=== PATIENT | female | born 1960 | race Caucasian/White ===

== ENCOUNTER 2017-05-18 03:31 | Emergency (ER) | payer BC ==
[~2017-05-18] VITALS: Ht 165.1 cm; Wt 70.6 kg
[~2017-05-18 03:31] MED LIST: ALBU1AER9 INH; BECL0.072 INH; CHOL1000 PO; CYCL10TA6 PO; EFFSR75 PO; FLNIN/ NAE; HYDR12.56 PO; HYDR2TAB48 PO; KLN1X PO; LEVO112T4 PO; PROM5SUP2 PR; PRT/40 PO; ROPI0.5T PO; SUCR1TAB PO; WLLSR150 PO
[2017-05-18 03:33] VITALS: TEMP 36.7; O2SAT 99; Ht 165.1 cm; Wt 70.6 kg
[2017-05-18] MEDS ORDERED: GI COCKTAIL PO STA (03:47)
[2017-05-18] MEDS ORDERED: LIDOCAINE HCL 2% VISC SOLN 20 ML UDC ONE (03:54)
[2017-05-18 03:58] LABS: BASO % 0.5 %; BASO ABS # 0.03 K/uL (0-0.2); COMPLETE YES; EOS % 2.7 %; HEMATOCRIT 39.3 % (37-47); IG% 0.2 %; LYMPH % 33.3 %; LYMPH ABS # 1.88 K/uL (1.2-3.4); MEAN CELL VOLUME 83.3 fL (80-100); MEAN CORPUSCULAR HEMOGLOBIN 27.3 pg (25-34); MEAN CORPUSCULAR HGB CONC 32.8 g/dl (32-36); MEAN PLATELET VOLUME 9.7 fL (7.4-10.4); MONO % 7.6 %; NEUT % 55.7 %; PLATELET COUNT 393 K/uL (130-400); RED BLOOD COUNT 4.72 M/uL (4.2-5.4); WHITE BLOOD COUNT 5.64 K/uL (4.8-10.8)
--- NOTE | 2017-05-18 04:07 | EMERGENCY ROOM VISIT NOTE ---
History First contact with patient: 03:37 Chief Complaint: CHEST PAIN Stated Complaint: HEARTBURN,FATIGUE,NAUSEA,METALLIC TASTE IN MOUTH Nursing Triage Summary: states she woke up with "indigestion" at 3 am, took her reflux medicine, thought she had better take an aspirin as well, so she did History of Present Illness The patient is a 56 year old female who presents to the Emergency Room for evaluation of chest pain. Notes several days of nausea, fatigue, shob with viral like symptoms. Awoke about an hour ago with burning substernal chest discomfort similar to her normal reflux but started noting metallic taste in mouth. No syncope, palpitations, vomiting, or other symptoms. No radiation of pain. Took OTC reflux meds and ASA withou relief thus came to ED for further evaluation and treatment. En route symptoms have resolved and she is feeling better. Nothing made worse, time made better. No previous cardiac history. Stress test 10 yrs ago negative per patient. Admits anxiety as well. Mother with history of CAD and stenting though at unknown age. Patient with history HTN. Denies smoking history. Denies DMII, DLP nor previous CAD history. No recent travel, trauma, steroid use, fam history of clotting issues. Review of Systems See HPI for pertinent positives & negatives. A total of 10 systems reviewed and were otherwise negative. Past Medical/Surgical History Medical Problems: (1) Anxiety (2) Asthma (3) Chronic kidney disease (4) Depression (5) GERD (gastroesophageal reflux disease) (6) Hiatal hernia (7) Hypertension (8) Hypothyroidism (9) Restless legs syndrome (RLS) (10) Sjoegren syndrome Surgical Problems: (1) Trimalleolar fracture of ankle, closed (2) Trimalleolar fracture of ankle, closed Social History Smoking Status: Never Smoker Smokeless Tobacco Use: No Alcohol Use: none Drug Use: none Marital Status: Housing Status: lives with significant other Current/Historical Medications Scheduled Albuterol Sulfate (Proair Hfa), 2 PUFFS INH BID Bupropion HCl (Bupropion HCl Sr), 150 MG PO QAM Cholecalciferol (Vitamin D3), 1,000 UNITS PO QAM Clonazepam (Clonazepam), 1 MG PO HS Cyclobenzaprine Hcl (Flexeril), 20 MG PO HS Fluticasone Furoate-Vilanterol (Breo Ellipta), 1 PUFF INH DAILY Hydrochlorothiazide (Hctz), 12.5 MG PO QAM Levothyroxine Sodium (Levothyroxine Sodium), 112 MCG PO QAM Pantoprazole (Pantoprazole Sodium), 40 MG PO BID Ropinirole Hydrochloride (Requip), 0.5 MG PO HS Sucralfate (Sucralfate), 1 GM PO ACHS Venlafaxine Hcl (Effexor Extended Rel), 75 MG PO QAM Scheduled PRN Fluticasone Propionate (Fluticasone Propionate), 2 SPRAYS SHAYY DAILY PRN for Nasal Congestion Promethazine (Phenergan Suppository), 12.5 MG [place] UD PRN for Nausea Physical Exam Vital Signs Date Time Temp Pulse Resp B/P (MAP) Pulse Ox O2 Delivery O2 Flow Rate FiO2 05/18/17 05:30 16 105/70 05/18/17 04:22 81 05/18/17 03:58 85 16 136/76 05/18/17 03:49 Room Air 05/18/17 03:33 36.7 105 16 156/91 99 Room Air Physical Exam GENERAL: Patient is anxious appearing and in no acute distress. HEENT: No acute trauma, normocephalic atraumatic, mucous membranes moist, no nasal congestion, no scleral icterus. NECK: No stridor, no adenopathy, no meningismus, trachea is midline. LUNGS: No dyspnea. Clear to auscultation and equal bilaterally. No wheeze, no rhonchi. HEART: Regular rate and rhythm. No murmurs, rubs, gallops appreciated. ABDOMEN: Soft, nontender, bowel sounds positive, no masses appreciated, no peritonitis. BACK: No midline tenderness, no CVA tenderness EXTREMITIES: Normal motion all extremities, no cyanosis, no edema. NEUROLOGIC: Alert and oriented, no acute motor or sensory deficits, no focal weakness, cranial nerves grossly intact. SKIN: No rash, no jaundice, no diaphoresis. Medical Decision & Procedures Laboratory Results 05/18/17 03:45 Red Blood Count 4.72, Mean Corpuscular Volume 83.3, Mean Corpuscular Hemoglobin 27.3, Mean Corpuscular Hemoglobin Concent 32.8, Mean Platelet Volume 9.7, Neutrophils (%) (Auto) 55.7, Lymphocytes (%) (Auto) 33.3, Monocytes (%) (Auto) 7.6, Eosinophils (%) (Auto) 2.7, Basophils (%) (Auto) 0.5, Neutrophils # (Auto) 3.14, Lymphocytes # (Auto) 1.88, Monocytes # (Auto) 0.43, Eosinophils # (Auto) 0.15, Basophils # (Auto) 0.03 05/18/17 03:45 Test 05/18/17 03:45 05/18/17 04:40 05/18/17 05:29 White Blood Count 5.64 K/uL (4.8-10.8) Red Blood Count 4.72 M/uL (4.2-5.4) Hemoglobin 12.9 g/dL (12.0-16.0) Hematocrit 39.3 % (37-47) Mean Corpuscular Volume 83.3 fL (80-100) Mean Corpuscular Hemoglobin 27.3 pg (25-34) Mean Corpuscular Hemoglobin Concent 32.8 g/dl (32-36) Platelet Count 393 K/uL (130-400) Mean Platelet Volume 9.7 fL (7.4-10.4) Neutrophils (%) (Auto) 55.7 % Lymphocytes (%) (Auto) 33.3 % Monocytes (%) (Auto) 7.6 % Eosinophils (%) (Auto) 2.7 % Basophils (%) (Auto) 0.5 % Neutrophils # (Auto) 3.14 K/uL (1.4-6.5) Lymphocytes # (Auto) 1.88 K/uL (1.2-3.4) Monocytes # (Auto) 0.43 K/uL (0.11-0.59) Eosinophils # (Auto) 0.15 K/uL (0-0.5) Basophils # (Auto) 0.03 K/uL (0-0.2) RDW Standard Deviation 47.3 fL (36.4-46.3) RDW Coefficient of Variation 15.5 % (11.5-14.5) Immature Granulocyte % (Auto) 0.2 % Immature Granulocyte # (Auto) 0.01 K/uL (0.00-0.02) Anion Gap 8.0 mmol/L (3-11) Est Creatinine Clear Calc Drug Dose 46.5 ml/min Estimated GFR () 52.4 Estimated GFR (Non- 45.2 BUN/Creatinine Ratio 12.8 (10-20) Calcium Level 9.1 mg/dl (8.5-10.1) Troponin I < 0.015 ng/ml (0-0.045) D-Dimer 320 ug/L FEU (0-500) Bedside Troponin I < 0.030 ng/ml (0-0.045) Medications Administered Medications (Trade) Dose Ordered Sig/Vidya Route Start Time Stop Time Status Last Admin Dose Admin Miscellaneous Medication (Gi Cocktail) 24 ml NOW STAT PO 05/18/17 03:47 05/18/17 03:48 DC 05/18/17 03:47 24 ML ECG Indication: chest pain Rate (beats per minute): 92 Rhythm: normal sinus Findings: no acute ischemic change, no ectopy Medical Decision Differential: Cardiac Ischemia (STEMI, NSTEMI, Unstable Angina, etc), Aortic Dissection, Arrhythmia, Pulmonary Embolism, Pneumonia, Pneumothorax, MSK, Infectious, Pericarditis/Myocarditis, Esophageal Rupture, Gastrointestinal, amongst other pathologies entertained. Very pleasant 56 yr old female arrives anxious regarding substernal burning chest pain similar to previous reflux issues though tonight with metallic taste in mouth. Initial EKG OK. Labs OK including Trop x 2. Patient feeling well without further issues post GI Cocktail. Reviewed need to follow up with PCP. RTED if worsening or other concerns reviewed. Medication Reconcilliation Current Medication List: was personally reviewed by me Blood Pressure Screening Patient's blood pressure: Elevated blood pressure Blood pressure disposition: Elevated BP felt to be situational Impression Primary Impression: Substernal chest pain Additional Impression: GERD (gastroesophageal reflux disease) Departure Information Dispostion Home / Self-Care Condition GOOD Referrals Latesha Barney M.D. (PCP) Patient Instructions ED GERD, [facility] Additional Instructions While it is likely that your symptoms are related to reflux, it is not possible to completely rule out a cardiac (heart) cause of your pain. At this time it is felt safe for you to be discharged to follow up with your primary care provider as soon as possible. Please discuss further cardiac evaluation ( stress testing, investigative reporter evaluation, etc). Problem Qualifiers
[2017-05-18 04:15] LABS: BLOOD UREA NITROGEN 17 mg/dl (7-18); BUN/CREATININE RATIO 12.8 (10-20); CALCIUM 9.1 mg/dl (8.5-10.1); CARBON DIOXIDE 29 mmol/L (21-32); CHLORIDE 101 mmol/L (98-107); GLUCOSE 115 mg/dl (70-99); POTASSIUM 3.7 mmol/L (3.5-5.1); SODIUM 138 mmol/L (136-145)
[2017-05-18 04:22] VITALS: PULSE 81
[2017-05-18] MEDS ORDERED: FLUT1INH INH (04:59)
[2017-05-18 05:30] VITALS: BP 105/70
--- NOTE | 2017-05-18 09:26 | DIAGNOSTIC IMAGING REPORT ---
CHEST ONE VIEW PORTABLE CLINICAL HISTORY: Chest pain. Fatigue. COMPARISON STUDY: Chest radiograph March 19, 2016. FINDINGS: Lung volumes are normal. There is no pneumothorax or pleural effusion. Pulmonary vascularity is normal. Biapical opacities are similar to prior exams and suggests scarring. Cardiomediastinal silhouette is normal. IMPRESSION: 1. No acute cardiopulmonary findings. 2. Biapical opacities which favor scarring. Electronically signed by: Mono Santiago M.D. 05/18/2017 9:25 AM Dictated Date/Time: 05/18/2017 9:24 AM
== END 2017-05-18 05:56 | disposition home or self-care (01) ==
LOC: C.EDB 03:31 → C.EDA 05:56
DX: R07.2 Precordial pain (principal); K21.9 Gastro-esophageal reflux disease without esophagitis; Z82.49 Family history of ischemic heart disease and other diseases of the circulatory system; I12.9 Hypertensive chronic kidney disease with stage 1 through stage 4 chronic kidney disease, or unspecified chronic kidney disease; J45.909 Unspecified asthma, uncomplicated; N18.9 Chronic kidney disease, unspecified; F32.9 Major depressive disorder, single episode, unspecified; E03.9 Hypothyroidism, unspecified; G25.81 Restless legs syndrome; M35.00 Sjogren syndrome, unspecified; Z79.899 Other long term (current) drug therapy

== ENCOUNTER → 2018-05-27 | Outpatient (CLI) | payer OTHER ==
[~2018-05-27] MED LIST changes: -BECL0.072 INH; +FLUT1INH INH; -HYDR2TAB48 PO; +PANT40TA2 PO; -PRT/40 PO
--- NOTE | 2018-05-28 05:58 | SPLIT NIGHT TECHNICIAN REPORT ---
[facility] Split Night Polysomnogram - Bargain Table Clerk Report Study date: 05/27/2018 Referring Physician: Dr. Joyce Liao M.D. Name: PAOLO HERNÁNDEZ Bargain Table Clerk: Tea Ramos [facility]. Date of : 1960 Height: 57 years, Height 5' 4.5" Sex: Female Weight: 169 lbs Age: 57 Neck Circum:15.5 inches BMI: Medications: 28.56 Pantoprazole 40 mg, Sucralfate 1 gm, Cyclobenzaprine 10 mg, Clonazepam 1 mg, Ropinerole 0.5 mg, HCTZ 12.5 mg, Levothyroxine 112 mg, Quetiapine 25 mg, Fluticasone 50 mg, Breo Patient History 57 yr. old female here for a modified split night sleep study if AHI is > 5. Patient complains of chronic fatigue, asthma, IBD, and snoring. Patient was diagnosed with mild GOKUL in the past but could not tolerate CPAP. ESS 04/20. Parameters Monitored NPSG: E1-M2, E2-M1, Fp1-M2, Fp2-M1, F3-M2, F4-M2, F4-M1, C3-M2, C4-M2, C4-M1, O1-M2, O2-M2, O2-M1, T3-M2, T4-M1, P3-M2, P4-M1, CHIN1, CHIN2, HR, EKG, Legs, PFLOW, SNOR, FLOW, CFLOW, Tidal Volume, THOR, ABDO, SpO2, PLTH, CPRESS, ETCO2 Wave, ETCO2, pH SLEEP SUMMARY DATA DIAGNOSTIC TREATMENT Lights Out: 9:32:38 PM 1:09:08 AM Lights On: 12:57:38 AM 5:29:38 AM Total Recording Time (TRT): 205.5 min. 260.5 min. Total Sleep Time (TST): 124.5 min. 188.0 min. NREM Time: 124.5 min. 188.0 min. REM Time: 0.0 min. 0.0 min. Sleep Period Time (SPT): 164.5 min. 258.0 min. Sleep Efficiency (SE): 61 % 72 % Sleep Latency: 40.5 min. 2.5 min. Arousal Index: 20.7 21.7 PAP Treatment Levels: 4, 5, 6, 7, 8, 9 * Optimal Pressure(s) SLEEP STAGING DATA DIAGNOSTIC TREATMENT Duration (min) TST % Duration (min) TST % Stage Wake: 80.5 min. -- 72.5 min. -- WASO: 40.0 min. -- 70.0 min. -- NREM: 124.5 min. 100 % 188.0 min. 100 % Stage N1: 26.0 min. 21 % 43.5 min. 23 % Stage N2: 85.0 min. 68 % 126.5 min. 67 % Stage N3: 13.5 min. 11 % 18.0 min. 10 % REM: 0.0 min. 0 % 0.0 min. 0 % POSITIONAL DATA Event Count Index Event Count Index Supine: 14 21 26 10.3 Supine NREM: 14 20.6 26 10.3 Supine REM: N/A N/A N/A N/A Non-Supine: 13 6.9 6 9.7 Non-Supine NREM: 13 6.9 6 9.7 Non-Supine REM: N/A N/A N/A N/A AROUSAL SUMMARY DATA: Event Count Index Event Count Index Apnea Arousals: 0 0.0 2 0.6 Hypopnea Arousals: 4 1.9 8 2.6 Snore Arousals: 3 1.4 3 1.0 PLM Arousals: 24 11.6 40 12.8 Non-Specific Arousals: 5 2.4 10 3.2 Total Arousals: 43 20.7 68 21.7 MYOCLONUS (PLM) Event Count Index Event Count Index PLM: 191 92.0 171 54.6 PLM AROUSAL: 24 11.6 40 12.8 PLM W/O AROUSAL 191 92.0 131 41.8 PLM W/RESP EVENT 11 0.0 8 0.0 MYOCLONUS (PLM) Event Count Index Event Count Index LM: 4 11.1 32 10.2 LM AROUSAL: 4 1.9 7 2.2 LM W/O AROUSAL LM W/RESP EVENT LM NON SPECIFIC 169 81.4 141 45.0 HEART RATE DATA DIAGNOSTIC TREATMENT Sleep (bpm): 77 76 REM (bpm): N/A N/A NREM (bpm): 92 93 Tachycardia Count: 0 0 Tachycardia Duration: 0.00 0 Bradycardia Count: 0 0 Bradycardia Duration: 0.00 0 DIAGNOSTIC PORTION TREATMENT PORTION RESPIRATORY DATA Event Count Index Event Count Index AHI: -- 11.1 -- 10.2 RDI: -- 13.0 -- 10 Obstructive Apnea: 0 0.0 1 0.3 Central Apnea: 0 0.0 1 0.3 Mixed Apnea: 0 0.0 0 0.0 Hypopnea: 23 11.1 30 9.6 RERA: 4 1.9 0 0.0 Total Apneas: 0 0.0 2 0.6 RESPIRATORY DATA REM NREM SLEEP REM NREM SLEEP Supine Position: Obstructive Apneas: N/A 0 0 N/A 1 1 Central Apneas: N/A 0 0 N/A 1 1 Mixed Apneas: N/A 0 0 N/A 0 0 Hypopneas: N/A 13 13 N/A 24 24 RERA N/A 1 1 N/A 0 0 Total Supine Events: N/A 14 14 N/A 26 26 Supine AHI: N/A 20.6 21 N/A 10.3 10.3 Supine RDI: N/A 22.2 22.2 N/A 10.3 10.3 REM NREM SLEEP REM NREM SLEEP Non-Supine Position: Obstructive Apneas: N/A 0 0 N/A 0 0 Central Apneas: N/A 0 0 N/A 0 0 Mixed Apneas: N/A 0 0 N/A 0 0 Hypopneas: N/A 10 10 N/A 6 6 RERA N/A 3 3 N/A 0 0 Total Supine Events: N/A 13 13 N/A 6 6 Supine AHI: N/A 6.9 6.9 N/A 9.7 9.7 Supine RDI: N/A 9.0 9.0 N/A 9.7 9.7 OXYGEN DESTAURATION DATA: Event Count Index Event Count Index REM Desaturations: N/A N/A N/A N/A NREM Desaturations: 31 14.9 32 10.2 SNORE DATA DIAGNOSTIC TREATMENT Snore Time: 5.1 1:11:38 AM Snore TST%: 3 1 Snore Arousal Count: 3 3 Snore Arousal Index: 1.4 1.0 Desaturation Event Summary: Minimum %SpO2 Event Count Mean/Min/Max Duration(sec.) Desaturation Index % Time In Bed > 90 85 28.3 / 4.8 / 60.0 13.8 83.0 86 - 90 8 19.4 / 6.0 / 30.5 6.6 16.4 81 - 85 2 12.1 / 11.0 / 13.3 52.7 0.5 76 - 80 1 13.3 / 13.3 / 13.3 158.2 0.1 71 - 75 0 N/A 0.0 0.0 66 - 70 0 N/A 0.0 0.0 61 - 65 0 N/A 0.0 0.0 56 - 60 0 N/A 0.0 0.0 51 - 55 0 N/A 0.0 0.0 < 50 0 N/A 0.0 0.0 OXYGEN SATURATION DATA DIAGNOSTIC TREATMENT SpO2 Mean Sleep: 92 % 93 % SpO2 Mean REM: N/A % N/A % SpO2 Mean NREM: 92 % 93 % SpO2 Minimum Sleep: 84 % 84 % SpO2 Minimum REM: N/A % N/A % SpO2 Minimum NREM: 84 % 84 % Time Below 90% (TST): 14.4 19.7 Time Below 88% (TST): 6.2 1.4 Total REM NREM Awake <50% 0.0 min. 0.0 min. 0.0 min. 0.0 min. 51 - 60% 0.0 min. 0.0 min. 0.0 min. 0.0 min. 61 - 70% 0.0 min. 0.0 min. 0.0 min. 0.0 min. 71 - 80% 0.4 min. 0.0 min. 0.0 min. 0.4 min. 81 - 90% 75.4 min. 0.0 min. 60.6 min. 14.8 min. 91 - 100% 370.0 min. 0.0 min. 249.3 min. 120.7 min. Average 93 0 92 94 Minimum SpO2 77 N/A 84 77 Desaturation Event Index 11.5 0.0 12.1 10.6 # Desat. Events below 89% 27 N/A 20 7 Time(%) with Saturation below 89% 5.7 0.0 3.7 2.0 Time(min.) with Saturation below 89% 25.5 0.0 16.6 8.9 Recording Bargain Table Clerk Comments: Mrs. Hernández slept in the right, left, and supine positions. No cardiac arrhythmia. PLMs noted. No bruxism noted. Snoring was noted and scored as a 2 on a scale of 0 through 5. (0=no snoring, 5=snoring loud enough to be heard through a closed door or down the jordan way) At 1:10 am, Mrs. Hernández met modified Split-Night criteria during the diagnostic portion of this study. CPAP was initiated at +4 CMH2O room air and up-titrated to an optimal level of +9 CMH2O Cflex, which nearly eliminated all respiratory events and snoring. A [employer], was used during titration. Mrs. Hernández awoke to use the restroom once during the night. Mrs. Hernández stated, I had a normal night. The final report will be interpreted and signed by a sleep physician. The completed physician report will then be placed in the patient medical record. Therapy Event: Therapy (cm H20) 0 4 5 6 7 8 9 Total Time at Pressure (min.) 205.0 23.9 28.2 42.9 17.9 32.5 114.6 TST at Pressure (min.) 124.5 14.9 27.2 42.9 17.4 32.0 53.6 # Periods 1 1 1 1 1 1 1 Sleep Onset (min.) 40.5 2.5 0.0 0.0 0.0 0.0 0.0 REM Onset (min.) N/A N/A N/A N/A N/A N/A N/A Sleep Efficiency % 60 62 96 100 97 98 46 Wakefulness (%) 39.3 37.7 3.6 0.0 2.8 1.5 53.2 Wakefulness (min.) 80.5 9.0 1.0 0.0 0.5 0.5 61.0 NREM 1 (%) 12.7 50.2 7.1 4.7 5.6 7.7 20.9 NREM 1 (min.) 26.0 12.0 2.0 2.0 1.0 2.5 24.0 NREM 2 (%) 41.5 12.1 89.3 95.3 91.6 66.5 17.0 NREM 2 (min.) 85.0 2.9 25.2 40.9 16.4 21.6 19.5 NREM 3 (%) 6.6 0.0 0.0 0.0 0.0 24.3 8.8 NREM 3 (min.) 13.5 0.0 0.0 0.0 0.0 7.9 10.1 REM (%) 0.0 0.0 0.0 0.0 0.0 0.0 0.0 REM (min.) 0.0 0.0 0.0 0.0 0.0 0.0 0.0 # Arousals 43 15 16 12 5 5 15 Arousal Index 20.7 60.4 35.3 16.8 17.2 9.4 16.8 # Snore 208 1 2 10 1 2 5 Snore Index 100.2 4.0 4.4 14.0 3.4 3.7 5.6 AHI 11.1 16.1 4.4 12.6 24.1 9.4 5.6 AHI Supine 20.6 0.0 4.4 12.6 24.1 9.4 7.8 AHI Non-Supine 6.9 36.4 N/A N/A N/A N/A 3.9 NREM AHI 11.1 16.1 4.4 12.6 24.1 9.4 5.6 REM AHI N/A N/A N/A N/A N/A N/A N/A RDI 13.0 16.1 4.4 12.6 24.1 9.4 5.6 # Obstructive 0 0 1 0 0 0 0 # Central Ap 0 0 0 1 0 0 0 # Mixed 0 0 0 0 0 0 0 # Hypopneas 23 4 1 8 7 5 5 RERAS 4 0 0 0 0 0 0 Total Respiratory Events 27 4 2 9 7 5 5 Time Below SpO2 89.00% (min.) 10.4 0.8 4.1 0.9 0.0 0.2 0.2 Mean NREM SpO2 (%) 92 92 90 92 94 95 93 Mean REM SpO2 (%) N/A N/A N/A N/A N/A N/A N/A Mean Sleep SpO2 (%) 92 92 90 92 94 95 93 Min NREM SpO2 (%) 84 87 84 87 88 86 84 Min REM SpO2 (%) N/A N/A N/A N/A N/A N/A N/A Position Supine (min.) 37.9 8.3 27.2 42.9 17.4 32.0 23.1 Position Non-supine (min.) 86.6 6.6 0.0 0.0 0.0 0.0 30.5 LM Index Sleep 103.1 92.7 130.3 104.9 68.9 18.7 17.9 LM Index NREM 103.1 92.7 130.3 104.9 68.9 18.7 17.9 LM Index REM N/A N/A N/A N/A N/A N/A N/A Mean Heart Rate (bpm) 77 76 75 75 75 74 78 Min Heart Rate (bpm) 55 72 72 72 70 71 72 15
== END | disposition home or self-care (01) ==
LOC: C.NEUR 21:00
PROVIDERS: ATTEND Internal Medicine
DX: G47.33 Obstructive sleep apnea (adult) (pediatric) (principal)

== ENCOUNTER 2020-07-31 19:03 | Observation (INO) ==
[2020-07-31] MEDS ORDERED: ONDANSETRON INJ 2 MG/ML 2 ML VIAL IV STA (19:23)
[2020-07-31] MEDS ORDERED: SODIUM CHLORIDE 0.9% 1000ML 1,000 ML IV ONE (19:23)
--- NOTE | 2020-07-31 19:39 | Emergency Department Note ---
Impression & Plan Confusion, Left shoulder pain ED Provider Note Provider: Masoud Melendez MD DATE OF SERVICE:07/31/2020 CHIEF COMPLAINT: Left shoulder pain, change in mental status HISTORY OF PRESENT ILLNESS: Patient is a 60-year-old female with a history of hypertension, irritable bowel syndrome, restless leg syndrome, Sjogren's syndrome presenting here today brought by her . Patient was seen here on the morning of July 28 after a fall and had imaging of the head completed here as well as a nasal laceration repair. Patient states she states that she is getting to have significant left shoulder pain. Went to [facility] yesterday and was evaluated and x-ray and some blood work. Patient states the pains been severe and they gave her some baclofen she used this afternoon. Took it about 4 hours apart and when the went to wake her for dinner she would not awake for about 30 to 40 minutes and seemed out of it. Patient states she seems like things are maybe little bit blurry and she feels dizzy. Denies head pain only endorsing pain to the left shoulder particularly the left lateral posterior aspect of the shoulder. Denies any pain in the left arm otherwise. Denies any more falls. Denies any alcohol or other drug use today. Has not taken her evening Klonopin per her report and does report taking her hydrocodone today. Denies a history of similar. states she is able to get up a little bit and he brought her here given her complaints. Patient states he has been nauseous and has not eaten very much today and has been states he is concerned she could be dehydrated. Has been states she was slightly repetitive with things earlier as well. REVIEW OF SYSTEMS: A total of 10 review of systems was obtained and negative except as stated above in the HPI. PAST MEDICAL HISTORY: As noted above MEDICATIONS: Reviewed the patient's home medication list now including baclofen SOCIAL HISTORY: Non-smoker, lives at home denies alcohol use PHYSICAL EXAM: GENERAL: alert and oriented in no acute distress on stretcher Head: Evidence of sutures across the nasal bridge without evidence of significant purulence or erythema. There is some resolving contusion around the right lower eye/eyelid. EYES: No injection, discharge or icterus. PERRL NECK: Trachea midline. Supple. ENT: Mucous membranes pink and moist. As above there is evidence of sutures ac ross the nasal bridge without evidence of infection such as erythema or purulent discharge. LUNGS: Airway patent. No retractions. Breath sounds clear HEART: Regular rate and rhythm. No chest wall tenderness ABDOMEN: Soft and non-tender, without guarding or rebound. SKIN: Acyanotic, warm, dry EXTREMITIES: Without swelling, tenderness or deformity some slight left lateral tenderness of the elbow but moving the arm fairly well and neuro intact with a radial pulse 1+ at the left wrist. NEUROLOGICAL: Moving all extremities. No facial droop. Some slightly slurred speech. EK beats minute normal sinus rhythm. No PVC. No acute ST segment elevation or depression. There is some baseline wander artifact. QTC 465. CONTINUOUS CARDIAC MONITORING: was ordered and showed a heart rate of 88 bpm in normal sinus rhythm PDMP was checked without noted issue. Patient's laboratory studies and imaging reviewed. Differential includes Infection, dehydration, metabolic abnormality, hypo/hyperglycemia, electrolyte disturbance, anemia, hypoxia, cardiac sources, intracerebral event, toxicologic, neurologic, as well as other pathologies. IMPRESSION/MEDICAL DECISION MAKING: Patient presents report of confusion dizziness visual change today. Fall several days ago and repeat a head CT to exclude delayed traumatic injury but she denies significant any coagulation. Has started baclofen today with some close pacing and possibly etiology. Brought toxicological and metabolic work-up was instituted. Review of records missed indicate a negative d-dimer and an x- ray of the chest not read but without obvious findings per the provider's note. No evidence acute hepatitis or pancreatitis based on laboratory studies. Negative troponin EKG without significant findings. Negative salicylate, Tylenol, and ethanol levels. No anion gap. Creatinine is a little bit higher than previous. Did receive Toradol initially for some pain control of her left shoulder which x-rays do not show any acute pathology here in the chest. Unsure again if her symptoms are all related to possibly reaction to the baclofen. Given her change in mental status CT the head was completed without significant findings per stat read. No focal deficits appreciated and I have low suspicion for acute CVA at this point. Believe further observation here in the hospital be warranted. Reassessment she seems quite fatigued and is sleeping at this point. was in agreement with the plan for further evaluation here and the hospitalist was contacted. DIAGNOSIS: Confusion, left shoulder pain DISPOSITION: Hospitalist will evaluate Preliminary Findings Only See Final Report For Complete Findings CT HEAD: No acute intracranial hemorrhage, hydrocephalus, edema, mass effect, or acute cortical infarct. Impacted nasal bone fracture. Radiologist: Isacc Saul MD Study ready at 20:33 and initial results transmitted at 21:04 Past Med/Surg History Medical History (Updated 08/01/20 @ 01:08 by Masoud Melendez M.D.) Anxiety Asthma Chronic kidney disease Depression GERD (gastroesophageal reflux disease) Hypertension Hypothyroidism Restless legs syndrome (RLS) Sjoegren syndrome Social History Smoking Status: Never smoker Preferred Language: Hebrew Feels Safe at Home: Yes Allergies Allergies Allergy/AdvReac Type Severity Reaction Status Date / Time DUST Allergy Intermediate SNEEZING, Uncoded 07/28/20 07:00 CONGESTION Home Meds Home Medications Medication Instructions Recorded Confirmed albuterol sulfate 2 puff INHALATION DIRECTED PRN 07/28/20 07/31/20 clonazepam 1 mg PO HS 07/28/20 07/31/20 cyclobenzaprine 20 mg PO HS 07/28/20 07/31/20 famotidine 20 mg PO BID 07/28/20 07/31/20 fluticasone furoate-vilanterol 1 inh INHALATION DAILY 07/28/20 07/31/20 [Breo Ellipta] fluticasone propionate 2 spray INTRANASAL DAILY PRN 07/28/20 07/31/20 levothyroxine 125 mcg PO DAILYBB 07/28/20 07/31/20 pantoprazole 40 mg PO QAM 07/28/20 07/31/20 promethazine 25 mg TN Q6H PRN 07/28/20 07/31/20 quetiapine 50 mg PO HS 07/28/20 07/31/20 ropinirole 0.5 mg PO HS 07/28/20 07/31/20 venlafaxine 150 mg PO DAILY 07/28/20 07/31/20 Previous Rx's Medication Instructions Recorded amoxicillin-pot clavulanate 1 tab PO BID #14 tab 07/28/20 [Augmentin] hydrocodone-acetaminophen [[place]] 1 tab PO Q6H PRN #12 tab 07/28/20 Results & Data (ED) Vital Signs Vital Signs - 24 hr 07/31/20 19:12 07/31/20 21:00 07/31/20 21:30 Temperature 36.7 C Temperature Source Oral Pulse Rate 86 80 79 Pulse Rate [Apical] Pulse Rate from SpO2 Sensor 79 80 Respiratory Rate 18 16 14 Respiratory Effort / Characteristics Non-Labored Spontaneous Respiratory Depth Normal Blood Pressure 163/76 H 173/79 H 141/71 H Blood Pressure [Right Arm] Blood Pressure Mean 105 114 92 Blood Pressure Mean [Right Arm] Pulse Oximetry 97 95 92 Oxygen Delivery Method Room Air Room Air Oxygen Flow Rate Sepsis Recent Fever Within 48 Hours No Sepsis New/Unexplained Change in Mental Status N/A Sepsis Action Taken by Nursing No Action Required 07/31/20 22:00 07/31/20 22:56 07/31/20 22:57 Temperature Temperature Source Pulse Rate 85 Pulse Rate [Apical] Pulse Rate from SpO2 Sensor 84 Respiratory Rate 14 Respiratory Effort / Characteristics Respiratory Depth Blood Pressure 148/70 H Blood Pressure [Right Arm] Blood Pressure Mean 88 Blood Pressure Mean [Right Arm] Pulse Oximetry 93 66 L 96 Oxygen Delivery Method Room Air Nasal Cannula Oxygen Flow Rate 2 Sepsis Recent Fever Within 48 Hours Sepsis New/Unexplained Change in Mental Status Sepsis Action Taken by Nursing 07/31/20 23:00 08/01/20 01:00 Temperature Temperature Source Pulse Rate Pulse Rate [Apical] 84 73 Pulse Rate from SpO2 Sensor Respiratory Rate 14 17 Respiratory Effort / Characteristics Respiratory Depth Blood Pressure Blood Pressure [Right Arm] 157/66 H 129/79 Blood Pressure Mean Blood Pressure Mean [Right Arm] 96 95 Pulse Oximetry 100 100 Oxygen Delivery Method Nasal Cannula Nasal Cannula Oxygen Flow Rate 2 2 Sepsis Recent Fever Within 48 Hours Sepsis New/Unexplained Change in Mental Status Sepsis Action Taken by Nursing Laboratory Data Result diagrams: 07/31/20 19:38 07/31/20 19:38 Lab Results 07/31/20 07/31/20 07/31/20 Range/Units 19:38 19:38 19:38 WBC 8.72 (4.8-10.8) K/uL RBC 4.88 (4.2-5.4) M/uL Hgb 14.6 (12.0-16.0) g/dL Hct 43.8 (37-47) % MCV 89.8 (80-100) fL MCH 29.9 (25-34) pg MCHC 33.3 (32-36) g/dL RDW Std Deviation 48.5 H (36.4-46.3) fL RDW Coeff of Evan 14.9 H (11.5-14.5) % Plt Count 330 (130-400) K/uL MPV 9.9 (7.4-10.4) fL Immature Gran % (Auto) 0.2 % Neut % (Auto) 72.5 % Lymph % (Auto) 20.2 % Payne % (Auto) 5.4 % Eos % (Auto) 1.6 % Baso % (Auto) 0.1 % Neut # (Auto) 6.32 (1.4-6.5) K/uL Lymph # (Auto) 1.76 (1.2-3.4) K/uL Payne # (Auto) 0.47 (0.11-0.59) K/uL Eos # (Auto) 0.14 (0-0.5) K/uL Baso # (Auto) 0.01 (0-0.2) K/uL Immature Gran # (Auto) 0.02 (0.00-0.02) K/uL Sodium 136 (136-145) mmol/L Potassium 3.8 (3.5-5.1) mmol/L Chloride 100 (98-107) mmol/L Carbon Dioxide 30 (21-32) mmol/L Anion Gap 5.0 (3-11) BUN 17 (7-18) mg/dl Creatinine 1.27 H (0.6-1.2) mg/dl Est Cr Clr Drug Dosing Not Reportable Est GFR ( Amer) 52.4 Est GFR (Non-Af Amer) 45.2 BUN/Creatinine Ratio 13.5 (10-20) Glucose 126 H (70-99) mg/dl Calcium 9.4 (8.5-10.1) mg/dl Total Bilirubin 0.3 (0.2-1) mg/dl AST 25 (15-37) U/L ALT 53 (12-78) U/L Alkaline Phosphatase 149 H (45-117) U/L Ammonia < 10.0 L (11-32) umol/L Total Creatine Kinase 75 (26-192) U/L Troponin I < 0.015 (0-0.045) ng/ml Total Protein 8.7 H (6.4-8.2) gm/dl Albumin 3.8 (3.4-5.0) gm/dl Globulin 4.9 H (2.5-4.0) gm/dl Albumin/Globulin Ratio 0.8 L (0.9-2) Lipase 69 L (73-393) U/L TSH 4.650 H (0.300-4.500) uIu/ml Free T4 1.02 (0.8-1.6) ng/dl Salicylates (2.8-20) mg/dl Urine Opiates Screen (Neg) Ur Methadone, Qual (Neg) Acetaminophen (10-30) ug/ml Urine Barbiturates (Neg) Ur Phencyclidine (PCP) (Neg) U Amphetamin/Meth Scrn (Neg) MDMA (Ecstasy) Screen (Neg) U Benzodiazepines Scrn (Neg) Ur Cocaine Metabolite (Neg) U Marijuana (THC) Screen (Neg) Ethyl Alcohol mg/dL (0-3) mg/dl 07/31/20 07/31/20 07/31/20 Range/Units 19:38 19:38 21:00 WBC (4.8-10.8) K/uL RBC (4.2-5.4) M/uL Hgb (12.0-16.0) g/dL Hct (37-47) % MCV (80-100) fL MCH (25-34) pg MCHC (32-36) g/dL RDW Std Deviation (36.4-46.3) fL RDW Coeff of Evan (11.5-14.5) % Plt Count (130-400) K/uL MPV (7.4-10.4) fL Immature Gran % (Auto) % Neut % (Auto) % Lymph % (Auto) % Payne % (Auto) % Eos % (Auto) % Baso % (Auto) % Neut # (Auto) (1.4-6.5) K/uL Lymph # (Auto) (1.2-3.4) K/uL Payne # (Auto) (0.11-0.59) K/uL Eos # (Auto) (0-0.5) K/uL Baso # (Auto) (0-0.2) K/uL Immature Gran # (Auto) (0.00-0.02) K/uL Sodium (136-145) mmol/L Potassium (3.5-5.1) mmol/L Chloride (98-107) mmol/L Carbon Dioxide (21-32) mmol/L Anion Gap (3-11) BUN (7-18) mg/dl Creatinine (0.6-1.2) mg/dl Est Cr Clr Drug Dosing Est GFR ( Amer) Est GFR (Non-Af Amer) BUN/Creatinine Ratio (10-20) Glucose (70-99) mg/dl Calcium (8.5-10.1) mg/dl Total Bilirubin (0.2-1) mg/dl AST (15-37) U/L ALT (12-78) U/L Alkaline Phosphatase (45-117) U/L Ammonia (11-32) umol/L Total Creatine Kinase (26-192) U/L Troponin I (0-0.045) ng/ml Total Protein (6.4-8.2) gm/dl Albumin (3.4-5.0) gm/dl Globulin (2.5-4.0) gm/dl Albumin/Globulin Ratio (0.9-2) Lipase (73-393) U/L TSH (0.300-4.500) uIu/ml Free T4 (0.8-1.6) ng/dl Salicylates < 1.7 L (2.8-20) mg/dl Urine Opiates Screen Neg (Neg) Ur Methadone, Qual Neg (Neg) Acetaminophen < 2 L (10-30) ug/ml Urine Barbiturates Neg (Neg) Ur Phencyclidine (PCP) Neg (Neg) U Amphetamin/Meth Scrn Neg (Neg) MDMA (Ecstasy) Screen Pos H (Neg) U Benzodiazepines Scrn Neg (Neg) Ur Cocaine Metabolite Neg (Neg) U Marijuana (THC) Screen Neg (Neg) Ethyl Alcohol mg/dL < 3.0 (0-3) mg/dl Administered Medications Discontinued Medications Sodium Chloride (Nss 1000ml) 1,000 mls @ 999 mls/hr IV .Q1H1M ONE Stop: 07/31/20 20:23 Last Infusion: 07/31/20 20:57 Dose: 0 mls/hr Documented by: [id number] Admin: 07/31/20 19:56 Dose: 999 mls/hr Documented by: [id number] Ketorolac Tromethamine (Ketorolac Tromethamine 15 Mg/Ml Vial) 15 mg IV NOW STA Stop: 07/31/20 20:08 Last Admin: 07/31/20 20:23 Dose: 15 mg Documented by: [id number] Ketorolac Tromethamine (Ketorolac 30 Mg/Ml Vial) Confirm Administered Dose 30 mg .ROUTE .STK-MED ONE Stop: 07/31/20 20:22 Last Admin: 07/31/20 20:23 Dose: Not Given Documented by: [id number] Ondansetron HCl (Ondansetron Inj 2 Mg/Ml 2 Ml Vial) 4 mg IV NOW STA Stop: 07/31/20 19:24 Last Admin: 07/31/20 19:56 Dose: 4 mg Documented by: [id number] Discharge Plan Visit Data Chief Complaint: Fall Stated Complaint: FELL SATURDAY - GETTING WORSE - ALT MENTAL STATUS ED Provider: Masoud Melendez Discharge Problem: Confusion, Left shoulder pain Patient Disposition: Being Evaluated by Hospitalist Forms Stand Alone Forms: [facility] Prescriptions Prescriptions: No Action cyclobenzaprine 10 mg tablet 20 mg PO HS RF: 0 promethazine 25 mg Suppository 25 mg TN Q6H PRN (Reason: Nausea) RF: 0 clonazepam 1 mg tablet 1 mg PO HS RF: 0 venlafaxine 150 mg capsule,extended release 24hr 150 mg PO DAILY RF: 0 famotidine 20 mg tablet 20 mg PO BID RF: 0 pantoprazole 40 mg tablet,delayed release (DR/EC) 40 mg PO QAM RF: 0 levothyroxine 125 mcg tablet 125 mcg PO DAILYBB RF: 0 ropinirole 0.5 mg tablet 0.5 mg PO HS RF: 0 albuterol sulfate 90 mcg/actuation HFA aerosol inhaler 2 puff INHALATION DIRECTED PRN (Reason: Shortness Of Breath Or Wheezing) RF: 0 fluticasone propionate 50 mcg/actuation spray,suspension 2 spray INTRANASAL DAILY PRN (Reason: Congestion) RF: 0 quetiapine 50 mg tablet 50 mg PO HS RF: 0 Breo Ellipta 200-25 mcg/dose blister with device 1 inh INHALATION DAILY RF: 0 amoxicillin-pot clavulanate [Augmentin] 875-125 mg tablet 1 tab PO BID Qty: 14 RF: 0 hydrocodone-acetaminophen [[place]] 5-325 mg tablet 1 tab PO Q6H PRN (Reason: pain) Qty: 12 RF: 0 Referrals Referrals: Bridgette Emmanuel MD [Primary Care Provider] - Discharge Problem: Left shoulder pain Qualifiers: Chronicity: acute Qualified Code(s): M25.512 - Pain in left shoulder
[2020-07-31 19:52] LABS: Basophils # (auto) 0.01 K/uL (0-0.2); Basophils % (auto) 0.1 %; Eosinophils # (auto) 0.14 K/uL (0-0.5); Eosinophils % (auto) 1.6 %; Hematocrit (blood only) 43.8 % (37-47); Hemoglobin 14.6 g/dL (12.0-16.0); Immature Granulocytes # (auto) 0.02 K/uL (0.00-0.02); Immature Granulocytes % (auto) 0.2 %; Lymphocytes # (auto) 1.76 K/uL (1.2-3.4); Lymphocytes % (auto) 20.2 %; Mean Corpuscular Hemoglobin 29.9 pg (25-34); Mean Corpuscular Hgb Conc 33.3 g/dL (32-36); Mean Corpuscular Volume 89.8 fL (80-100); Mean Platelet Volume 9.9 fL (7.4-10.4); Monocytes # (auto) 0.47 K/uL (0.11-0.59); Monocytes % (auto) 5.4 %; Neutrophils # (auto) 6.32 K/uL (1.4-6.5); Neutrophils % (auto) 72.5 %; Platelet Count 330 K/uL (130-400); RDW Coefficient of Variation 14.9 % (11.5-14.5); RDW Standard Deviation 48.5 fL (36.4-46.3); Red Blood Count 4.88 M/uL (4.2-5.4); White Blood Count 8.72 K/uL (4.8-10.8)
--- NOTE | 2020-07-31 19:55 | XRay Report ---
XR chest 1V portable CLINICAL HISTORY: R shoulder pain COMPARISON STUDY: 05/16/2017 FINDINGS: The cardiac and mediastinal contours are normal. There is no evidence of focal pulmonary co nsolidation. There is no evidence of failure. No pleural effusions are visualized.[There is no pneumo thorax. There is no free intraperitoneal air. IMPRESSION: No active disease in the chest. ACT 112: Negative or not required by law. Electronically signed by: Donald Dawkins M.D. 07/31/2020 7:53 PM
--- NOTE | 2020-07-31 19:55 | XRay Report ---
XR shoulder LT min 2V routine CLINICAL HISTORY: Left shoulder pain status post trauma COMPARISON: None. DISCUSSION: No fractures or dislocations are visualized. There are no visible periarticular calcifica tions. IMPRESSION: No acute fractures or dislocations identified. ACT 112: Negative or not required by law. Electronically signed by: Donald Dawkins M.D. 07/31/2020 7:54 PM
[2020-07-31] MEDS ORDERED: KETOROLAC TROMETHAMINE 15 MG/ML VIAL IV STA (20:07)
[2020-07-31 20:08] LABS: Alanine Aminotransferase 53 U/L (12-78); Albumin Level 3.8 gm/dl (3.4-5.0); Aspartate Aminotransferase 25 U/L (15-37); BUN Creatinine Ratio 13.5 (10-20); Blood Urea Nitrogen 17 mg/dl (7-18); Calcium 9.4 mg/dl (8.5-10.1); Carbon Dioxide 30 mmol/L (21-32); Chloride 100 mmol/L (98-107); Est GFR (African American) 52.4; Est GFR (Non-African American) 45.2; Glucose 126 mg/dl (70-99); Lipase 69 U/L (73-393); Potassium 3.8 mmol/L (3.5-5.1); Sodium 136 mmol/L (136-145)
[2020-07-31 20:19] LABS: Albumin Globulin Ratio 0.8 (0.9-2); Alkaline Phosphatase 149 U/L (45-117); Bilirubin,Total 0.3 mg/dl (0.2-1); Creatine Kinase 75 U/L (26-192); Globulin 4.9 gm/dl (2.5-4.0); Total Protein 8.7 gm/dl (6.4-8.2); Troponin I < 0.015 ng/ml (0-0.045)
[2020-07-31 20:21] LABS: Acetaminophen < 2 ug/ml (10-30)
[2020-07-31] MEDS ORDERED: KETOROLAC 30 MG/ML VIAL ONE (20:21)
[2020-07-31 20:22] LABS: Salicylate < 1.7 mg/dl (2.8-20)
[2020-07-31 20:31] LABS: T4 Free Thyroxine 1.02 ng/dl (0.8-1.6)
[2020-07-31 21:30] LABS: Amphetamines+Metham, Urine Neg (Neg); Barbiturates, Urine Neg (Neg); Benzodiazepine, Urine Neg (Neg); Cocaine, Urine Neg (Neg); MDMA (Ecstacy), Urine Pos (Neg); Methadone, Urine Neg (Neg); Opiate, Urine Neg (Neg); Phencyclidine, Urine Neg (Neg)
[2020-08-01] MEDS ORDERED: ALBUTEROL HFA 8 GM INHALER INH PRN (01:42)
[2020-08-01] MEDS ORDERED: ONDANSETRON INJ 2 MG/ML 2 ML VIAL IV PRN (01:42)
[2020-08-01] MEDS ORDERED: ACETAMINOPHEN 325 MG TAB PO PRN (01:42)
[2020-08-01] MEDS ORDERED: FLUTICASONE PROPIONATE NA SPR 16 GM BTL PRN (01:42)
[2020-08-01] MEDS ORDERED: SODIUM CHLORIDE 0.9% 1000ML 1,000 ML IV SCH (01:42)
--- NOTE | 2020-08-01 02:43 | History and Physical Report ---
DATE OF ADMISSION: 08/01/2020 CHIEF COMPLAINT: Some confusion, drowsiness. HISTORY OF PRESENT ILLNESS: This is a 60-year-old female with past medical history significant for hypothyroidism, prediabetes, asthma, obstructive sleep apnea, on CPAP at bedtime, gastroparesis, irritable bowel syndrome, GERD, chronic kidney disease stage III, myalgia, myositis, restless leg syndrome, trochanteric bursitis of both the hips, chronic fatigue syndrome, Sjogren syndrome, family history of colon cancer, who lives with her , presents with some confusion. The patient was here status post fall on 07/29/2020, she was in the ER and she had a facial injury. At that time, she had diarrheal illness. When she went to bathroom, she suddenly fell down, she does not remember how she fell down, but she had a lot of bleeding from the nose and she came to the ER. There was no loss of consciousness at that time. Sutures were done to the nasal laceration. CT scan of the brain was done which was unremarkable and CT of the facial bones was done. It showed comminuted displaced right nasal bone fractures. The patient was discharged on pain medications [place] and also Augmentin and advised to follow with ENT. The patient says she has an appointment on coming Saturday with ENT specialist at [facility].But after going home she also complained of left shoulder pain and she saw her PCP on 07/30/2020 and she was prescribed prednisone and also baclofen. She also got x-rays which were unremarkable. The patient was taking baclofen every 4 hours and today on 07/31/2020 afternoon, the patient was found very drowsy. Her had difficulty waking her up and she was feeling dizzy, lightheaded, and also had some blurred visions and some balance issues and she had an episode of vomiting, which prompted her to bring her to the hospital. In the ER, CT of the head was unremarkable. Shoulder x-ray was done and chest x-ray was done which were also unremarkable. Her labs were all unremarkable. Vital signs were stable. Her symptoms were thought to be from the baclofen. She did not take any of her home medications today. When I saw her, the patient was sleepy, drowsy, but on awakening she was alert and oriented x3 and she was able to answer appropriately. is in the room. Currently, she states she still feels somewhat dizzy and somewhat lightheaded and blurred vision, but she is hungry and she wants to eat now and her main problem is pain in the left shoulder. She was able to flex her neck okay. Denies any chest pain, no shortness of breath, no cough, no earache, no sore throat. Currently, no nausea, no abdominal pain. Normal bowel and bladder movements. No burning micturition, no swelling in the legs, no rash. ALLERGIES: DUST. PAST MEDICAL HISTORY: As mentioned above. PAST SURGICAL HISTORY: Left carpal tunnel surgery, colonoscopy, EGDs with biopsy, reduction of the breast, removal of pelvic structures, total abdominal hysterectomy with removal of tubes. MEDICATIONS: The patient is on albuterol 2 puffs as directed, Augmentin 1 tablet p.o. b.i.d., Klonopin 1 mg p.o. at bedtime, baclofen 20 mg p.o. t.i.d. p.r.n., famotidine 20 mg p.o. b.i.d., Breo Ellipta one inhalation daily, Flonase 2 sprays intranasal daily p.r.n., [place] 1 tablet p.o. q. 6 hours p.r.n., levothyroxine 125 mcg p.o. daily, Protonix 40 mg p.o. daily, promethazine 25 mg p.o. q. 6 hours p.r.n., quetiapine 50 mg at bedtime, ropinirole 0.5 mg at bedtime, venlafaxine 150 mg p.o. daily. FAMILY HISTORY: Significant for aunt has cancer; mother has diabetes, cancer; father had bladder and prostate cancer; paternal grandfather had oropharyngeal cancer; maternal grandmother had diabetes. SOCIAL HISTORY: , lives with her . No smoking, no alcohol, no drug use. REVIEW OF SYSTEMS: As per HPI. Rest of the review of systems negative. PHYSICAL EXAMINATION: GENERAL: The patient is of moderate build, not in acute distress. VITAL SIGNS: Temperature 36.7, pulse 84, respiratory rate 14, blood pressure 157/66, oxygen 100% on 2 liters. HEENT: No pallor. Nasal bridge sutures seen and bruise below the eyes. Oral mucosa moist. NECK: Supple, no neck masses seen. CARDIOVASCULAR: S1, S2 heard. Regular rate and rhythm, no murmur, no gallop. RESPIRATORY SYSTEM: Normal AP diameter. No accessory muscle use. No wheezing, no crackles. ABDOMEN: Soft, bowel sounds present, nontender. No distention. CENTRAL NERVOUS SYSTEM: Cranial nerves II-XII, alert and oriented x3. Speech clear. No facial droop. Moves extremities. EXTREMITIES: No edema, no erythema. LABORATORY DATA: WBC 8.7, hemoglobin 14.6, hematocrit 43.8, platelets 330. Sodium 136, potassium 3.8, chloride 100, bicarbonate 30, BUN 17, creatinine 1.27, serum glucose 126, calcium 9.4, total bilirubin 0.3, AST 25, ALT 53, alkaline phosphatase 114. Ammonia less than 10. Total creatine kinase 75. Troponin I less than 0.015. Lipase 69. TSH 4.63, free T4 of 1.07. Toxicology, salicylate less than 1.7, acetaminophen less than 2, MDMA screen positive, ethyl alcohol less than 3. IMAGING DATA: Left shoulder x-ray, no acute fracture or dislocations identified. Chest x-ray, no acute findings. CT of the head, preliminary report, no acute findings. EKG: Normal sinus rhythm, rate of 83, no significant change was found, QTC 465. ASSESSMENT AND PLAN: A 60-year-old female who presents with confusion, drowsiness. 1. Confusion, drowsiness, and blurred visions, possibly from the baclofen which she started yesterday given for the shoulder pain, which will be held. We will also hold her home psych medications for now until she is more alert and awake. CT of the head and all the labs are fine. Currently, patient is drowsy but arousable and answers questions appropriately and speech is clear. Insight is good. We will observe in the med tele, IV fluids. When her mental status improves, restart her home medications tomorrow. 2. Left shoulder pain and also arm pain, possible cervicalgia from the recent fall. Will get a cervical spine x-ray tomorrow. 3. Hypothyroidism. Continue Synthroid. 4. Obstructive sleep apnea. Continue CPAP at bedtime. 5. Sjogren's syndrome, follows with rheumatology. 6. Restless legs syndrome, on Requip at bedtime. 7. Prediabetes. Will follow HbA1c level in the a.m. Currently n.p.o. 8. Asthma, mild, persistent. Continue her home inhalers, currently stable. 9. Chronic kidney disease stage III, baseline creatinine of 1.2. Seems to be at baseline. We will follow the labs in the a.m. 10. Facial injury because of fall on 07/29/2020. Imaging studies are showing comminuted displaced right nasal bone fracture, status post suture in the ER. Has followup appointment with ENT specialist on Saturday as per the patient. 11. Depression. Continue her home medications. 12. Deep vein thrombosis prophylaxis, sequential compression devices for now. 13. Disposition: Closely observe in med tele. Level 1 full code. Expect to discharge home and follow with her family doctor. SHARON
[2020-08-01] MEDS ORDERED: LEVOTHYROXINE SODIUM 125 MCG TABLET PO SCH (06:30)
--- NOTE | 2020-08-01 07:19 | CT Scan Report ---
CT SCAN OF THE BRAIN WITHOUT IV CONTRAST CLINICAL HISTORY: Dizziness. COMPARISON STUDY: CT of the brain and facial bones dated 07/28/2020. TECHNIQUE: Unenhanced axial CT scan of the brain is performed from the vertex to the skull base. A d ose lowering technique was utilized adhering to the principles of ALARA. The examination is modestly degraded by motion artifact. CT DOSE: 998.18 mGy.cm FINDINGS: Brain parenchyma: There is minimal microangiopathic change. There is no hemorrhage, mass effect, or e vidence of acute territorial ischemia by CT criteria. Barrera-white matter differentiation is preserved. No extra-axial fluid collection is seen. Ventricles, sulci, cisterns: Normal in configuration. Intracranial vasculature: There is atherosclerotic calcification of the cavernous carotid arteries. Calvarium: There is no depressed calvarial fracture. Bilateral nasal bone fractures are again noted. Sinuses and mastoids: The visualized paranasal sinuses are clear. The mastoid air cells are well pneu matized. Orbits: The bony orbits are grossly intact. IMPRESSION: 1. No acute intracranial abnormality. 2. Bilateral nasal bone fractures are again noted. ACT 112: Negative or not required by law. Electronically signed by: Zan Benavidez M.D. 08/01/2020 7:18 AM
[2020-08-01 07:25] LABS: Estimated Average Glucose 131 mg/dl; Hemoglobin A1C 6.2 % (4.5-5.6)
[2020-08-01] MEDS ORDERED: AMOXICILLIN/CLAVULANATE 875 MG TAB PO SCH (08:00)
[2020-08-01] MEDS ORDERED: FAMOTIDINE 20 MG TAB PO SCH (09:00)
[2020-08-01] MEDS ORDERED: FLUTICASONE/VILANTEROL 200/25MCG 14 PUFFS/INHALER INH SCH (09:00)
[2020-08-01] MEDS ORDERED: VENLAFAXINE HCL XR 150 MG CAPXR PO SCH (09:00)
[2020-08-01] MEDS ORDERED: PANTOprazole 40 MG TAB PO SCH (09:00)
--- NOTE | 2020-08-01 09:02 | XRay Report ---
CERVICAL SPINE 3 VIEWS CLINICAL HISTORY: Left shoulder and arm pain. Recent fall. FINDINGS: AP, lateral, and odontoid views of the cervical spine are correlated with CT of the neck da gary 12/31/2007. The skeletal structures are osteopenic. There is no radiographic evidence of fracture o r subluxation. The odontoid process and lateral masses appear intact on the open mouth view. The spin olaminar line is preserved. Vertebral body height and alignment are maintained. Anterior osteophytes are noted in the lower cervical spine. The spinous processes appear intact. Mild disc space narrowing is seen at C5-C6 and C6-C7. Posterior disc osteophyte complexes at these levels likely contribute to mild acquired compromise of the central canal. Mild multilevel facet arthropathy seen on the frontal view. The prevertebral soft tissues are within normal limits. Visualized apical lung parenchyma appe ars clear. IMPRESSION: 1. No acute bony abnormality is seen involving the cervical spine. 2. Mild spondylotic change in the lower cervical region as above. ACT 112: Negative or not required by law. Electronically signed by: Zan Benavidez M.D. 08/01/2020 9:01 AM
--- NOTE | 2020-08-01 14:08 | Discharge Summary ---
Date of Service August 01, 2020 Admission HPI Per Admitting Provider 60-year-old female with past medical history significant for hypothyroidism, prediabetes, asthma, obstructive sleep apnea, on CPAP at bedtime, gastroparesis, irritable bowel syndrome, GERD, chronic kidney disease stage III, myalgia, myositis, restless leg syndrome, trochanteric bursitis of both the hips, chronic fatigue syndrome, Sjogren syndrome, family history of colon cancer, who lives with her , presents with some confusion. The patient was here status post fall on 07/29/2020, she was in the ER and she had a facial injury. At that time, she had diarrheal illness. When she went to bathroom, she suddenly fell down, she does not remember how she fell down, but she had a lot of bleeding from the nose and she came to the ER. There was no loss of consciousness at that time. Sutures were done to the nasal laceration. CT scan of the brain was done which was unremarkable and CT of the facial bones was done. It showed comminuted displaced right nasal bone fractures. The patient was discharged on pain medications O'Brien and also Augmentin and advised to follow with ENT. The patient says she has an appointment on coming Saturday with ENT specialist at [facility].But after going home she also complained of left shoulder pain and she saw her PCP on 07/30/2020 and she was prescribed prednisone and also baclofen. She also got x-rays which were unremarkable. The patient was taking baclofen every 4 hours and today on 07/31/2020 afternoon, the patient was found very drowsy. Her had difficulty waking her up and she was feeling dizzy, lightheaded, and also had some blurred visions and some balance issues and she had an episode of vomiting, which prompted her to bring her to the hospital. In the ER, CT of the head was unremarkable. Shoulder x-ray was done and chest x-ray was done which were also unremarkable. Her labs were all unremarkable. Vital signs were stable. Her symptoms were thought to be from the baclofen. She did not take any of her home medications today. When I saw her, the patient was sleepy, drowsy, but on awakening she was alert and oriented x3 and she was able to answer appropriately. is in the room. Currently, she states she still feels somewhat dizzy and somewhat lightheaded and blurred vision, but she is hungry and she wants to eat now and her main problem is pain in the left shoulder. She was able to flex her neck okay. Denies any chest pain, no shortness of breath, no cough, no earache, no sore throat. Currently, no nausea, no abdominal pain. Normal bowel and bladder movements. No burning micturition, no swelling in the legs, no rash. Admission Exam Per Admitting Provider GENERAL: The patient is of moderate build, not in acute distress. VITAL SIGNS: Temperature 36.7, pulse 84, respiratory rate 14, blood pressure 157/66, oxygen 100% on 2 liters. HEENT: No pallor. Nasal bridge sutures seen and bruise below the eyes. Oral mucosa moist. NECK: Supple, no neck masses seen. CARDIOVASCULAR: S1, S2 heard. Regular rate and rhythm, no murmur, no gallop. RESPIRATORY SYSTEM: Normal AP diameter. No accessory muscle use. No wheezing, no crackles. ABDOMEN: Soft, bowel sounds present, nontender. No distention. CENTRAL NERVOUS SYSTEM: Cranial nerves II-XII, alert and oriented x3. Speech clear. No facial droop. Moves extremities. EXTREMITIES: No edema, no erythema. Principal Diagnosis Encephalopathy, Drug induced Discharge Exam Constitutional well nourished and + well hydrated; no acute distress Eyes PERRL, conjunctivae normal, anicteric sclerae ENMT Sutures over nose Bruise under right eye Respiratory normal respiratory effort, lungs clear to auscultation Cardiovascular RRR, no murmur, no edema Gastrointestinal (Abdomen) normal bowel sounds, soft, nontender, no hepatosplenomegaly Musculoskeletal no cyanosis or clubbing, extremities motor strength 5/5 Neurologic PERRL, EOMI, accommodation nl, no face palsy, no dysarthria Psychiatric A+Ox3, euthymic affect Discharge Data Allergies Allergy/AdvReac Type Severity Reaction Status Date / Time DUST Allergy Intermediate SNEEZING, Uncoded 07/28/20 07:00 CONGESTION Consultations 07/31/20 21:37 ED Decision to Admit Stat 08/01/20 01:42 Consult Case Management - Discharge Planning Routine Ordered Studies 07/31/20 19:23 CT head/brain wo con Urgent Brain parenchyma: There is minimal microangiopathic change. There is no hemorrhage, mass effect, or evidence of acute territorial ischemia by CT criteria. Barrera-white matter differentiation is preserved. No extra-axial fluid collection is seen. Ventricles, sulci, cisterns: Normal in configuration. Intracranial vasculature: There is atherosclerotic calcification of the cavernous carotid arteries. Calvarium: There is no depressed calvarial fracture. Bilateral nasal bone fractures are again noted. Sinuses and mastoids: The visualized paranasal sinuses are clear. The mastoid air cells are well pneumatized. Orbits: The bony orbits are grossly intact. IMPRESSION: 1. No acute intracranial abnormality. 2. Bilateral nasal bone fractures are again noted. Hospital Course (1) Drug-induced encephalopathy: Patient was taken the baclofen prescribed by PCP every 4h instead of three times a day Encephalopathy due to medication effects especially in background of chronic Klonopin use and recent opioid use for nasal fractures Medication discontinued Confusion and drowsiness resolved Patient advised to discontinue baclofen, norco. Advised to take tylenol prn for pain UDS was positive for MDMA but patient denied ecstasy use (2) Hypothyroidism: Continue levothyroxine (3) Fracture of nasal bones: (4) Facial laceration: Recent fall with nasal fractures Advised patient to minimize use of flexeril PCP to consider weaning off meds that may contribute to fall considering patient is on klonopin. Also takes venlafaxine, ropinirole for depression and RLS Patient to follow up with ENT tomorrow for evaluation of nasal fracture and possible suture removal Evaluated by PT (5) Chronic kidney disease: Cr 1.27 Avoid nephrotoxins Total Time Total Time Spent Total Time Spent (In Minutes): 35 Total Time Includes: Examination of the Patient, Discharge Planning and Medication Reconciliation Discharge Plan Discharge Items Patient Disposition: Home - Self-Care Reason For Visit: CONFUSION Discharge Diagnosis: Drowsiness Encephalopathy from medication effect Activity: Resume your previous activity Non-emergency contact: Primary Care Provider Call non-emergency contact if: you have any medication questions Follow-up/Referrals: Bridgette Emmanuel MD [Primary Care Provider] - Diet: Heart Healthy Addtl Attending Provider Instructions: Mrs Edouard. You were brought to the hospital for change in your mental status. You were confused and drowsy. You were evaluated and managed overnight. This has resolved. This was due to medication side effects as you took higher than prescribed dose of baclofen. Please stop taking baclofen. Please stop taking hydrocodone-acetaminophen (norco) Please use tylenol as needed for pain. Please follow up with your Primary Doctor and other appointments already scheduled It was a pleasure taking care of you. Pending Studies at Discharge: No Stand-Alone Forms: My [facility], Smoking Cessation Medications and DC Order Prescriptions: New acetaminophen 325 mg Tablet 650 mg PO Q4H PRN (Reason: pain) Qty: 50 RF: 0 Continued cyclobenzaprine 10 mg tablet 20 mg PO HS RF: 0 promethazine 25 mg Suppository 25 mg OR Q6H PRN (Reason: Nausea) RF: 0 clonazepam 1 mg tablet 1 mg PO HS RF: 0 venlafaxine 150 mg capsule,extended release 24hr 150 mg PO DAILY RF: 0 famotidine 20 mg tablet 20 mg PO BID RF: 0 pantoprazole 40 mg tablet,delayed release (DR/EC) 40 mg PO QAM RF: 0 levothyroxine 125 mcg tablet 125 mcg PO DAILYBB RF: 0 ropinirole 0.5 mg tablet 0.5 mg PO HS RF: 0 albuterol sulfate 90 mcg/actuation HFA aerosol inhaler 2 puff INHALATION DIRECTED PRN (Reason: Shortness Of Breath Or Wheezing) RF: 0 fluticasone propionate 50 mcg/actuation spray,suspension 2 spray INTRANASAL DAILY PRN (Reason: Congestion) RF: 0 quetiapine 50 mg tablet 50 mg PO HS RF: 0 Breo Ellipta 200-25 mcg/dose blister with device 1 inh INHALATION DAILY RF: 0 amoxicillin-pot clavulanate [Augmentin] 875-125 mg tablet 1 tab PO BID Qty: 14 RF: 0 Discontinued hydrocodone-acetaminophen [O'Brien] 5-325 mg tablet 1 tab PO Q6H PRN (Reason: pain) Qty: 12 RF: 0 Discharge Orders: Discharge Order (Routine); Ordered 08/01/20 Ordered By: Zena Dawson/Other Patient Handouts: Prediabetes, A1C Admission Data Admit Date/Time: 08/01/20 00:41 Attending Provider: Zena Ordonez I. Admit Provider: Art Noriega Primary Care Provider: Bridgette Emmanuel Other Providers: Art Noriega ; Thanh Hebert Other Interventions: Discharge Summary Assessment (RN) Last Done: 08/01/20 14:14
--- NOTE | 2020-08-01 16:50 | Electrocardiogram Report ---
Test Reason : Blood Pressure : / mmHG Vent. Rate : 083 BPM Atrial Rate : 083 BPM P-R Int : 142 ms QRS Dur : 084 ms QT Int : 396 ms P-R-T Axes : 065 060 028 degrees QTc Int : 465 ms Poor data quality, interpretation may be adversely affected Normal sinus rhythm Possible Left atrial enlargement Borderline ECG When compared with ECG of 18-MAY-2017 03:41, No significant change was found Confirmed by Kimo Gottlieb ([id number]) on 08/01/2020 4:49:47 PM Referred By: REFERRED SELF Confirmed By:Viral Gottlieb
[2020-08-01] MEDS ORDERED: ROPINIROLE HCL 0.25 MG TABLET PO SCH (21:00)
[2020-08-01] MEDS ORDERED: QUETIAPINE FUMARATE 25 MG TABLET PO SCH (21:00)
[2020-08-04 19:23] LABS: MDA negative; MDEA negative; MDMA (Ecstasy) Urine, Confirm negative
== END 2020-08-01 14:30 | disposition home or self-care (01) ==
LOC: ED 19:03 → 2N 19:03 → SUATTDRO 08-01 00:41 → 2N 08-01 01:16

== ENCOUNTER 2024-08-12 13:05 | Observation (INO) ==
--- NOTE | 2024-08-12 13:59 | Emergency Department Note ---
Impression & Plan UZMA (acute kidney injury), Weakness, Hyperglycemia ED Provider Note NAME: PAOLO HERNÁNDEZ AGE: 64 SEX: F : 1960 ARRIVES VIA: Walk-In INFORMANT: Patient ED PROVIDER(S): Sang Padron DO CHIEF COMPLAINT: Lightheaded HPI: Patient is a 64-year-old female with a past medical history of hernia, diabetes, gastroparesis, hypertension, GERD and anxiety as well as CKD that presents to the ER for lightheadedness. She notes that the symptoms started 7 days ago. is present at bedside and provides additional history that this occurred 10 days ago. She notes that this only occurs with changing of positions. If she does it quickly she feels like she is going to pass out. If she does not slowly is not as bad. She does not get it with laying down or after changing positions. Her psychiatrist told her to stop her auvelity and her PCP just instructed her to cut her olmesartan in half. She denies any chest pain or shortness of breath. She was found to have a UTI several days ago and placed on Bactrim. She has no urinary symptoms. Denies any dysuria, urgency, or frequency. ADDITIONAL HISTORY OBTAINED: Per HPI Chronic Medical/Social Conditions Affecting Care: Per HPI PAST MEDICAL HISTORY:See Below PAST SURGICAL HISTORY:See Below FAMILY HISTORY:See Below SOCIAL HISTORY:See Below HOME MEDICATIONS:See Below ALLERGIES:See Below VITALS:See Below PHYSICAL EXAMINATION: GENERAL: Sitting up in bed, alert, well appearing, well nourished, no distress, non-toxic EYE EXAM: normal conjunctiva. PERRL and EOM's intact. OROPHARYNX:mucous membranes are moistr LUNGS: Clear to auscultation. Normal chest wall mechanics HEART: no murmurs, S1 normal and S2 normal ABDOMEN: abdomen soft, non-tender, normo-active bowel sounds, no masses, no rebound or guarding. BACK: Back is symmetrical on inspection and there is no deformity, no midline tenderness, no CVA tenderness. SKIN: no rashes and no bruising UPPER EXTREMITIES: upper extremities are grossly normal. LOWER EXTREMITIES: No pitting edema. NEURO EXAM: Normal sensorium, cranial nerves II-XII intact, normal speech, no weakness of arms, no weakness of legs. No drift. Finger to nose intact. Gross sensation intact. MEDICAL DECISION MAKING: Patient is a 64-year-old female who presents to the ER for the above-stated complaint. IV was established medicos obtained. Labs show no significant leukocytosis or anemia. BMP with a creatinine of 2.3 from baseline of 1.1-1.3. LFTs bilirubin is unremarkable. Troponin negative. Lipase normal. UA was clean. CT head was negative. Chest x-ray was clean. Patient was given IV fluids. Patient was updated st bedside and discussed with the hospitalist admitted for further workup. Consults/Care Managements Discussions: Per [facility] Triage Nursing notes reviewed. Limited review of prior medical records performed Vital Signs: reviewed and remarkable for no significant abnormalities Differential diagnosis: Differential diagnosis includes etiologies such as benign positional vertigo, dehydration, hypovolemia, anemia, tumor, infection, hypoglycemia, electrolyte abnormalities, cardiac sources, intracerebral event, toxicologic, neurological, as well as others were entertained. ER treatment provided: See below Diagnostics interpreted by me include EKG and cardiac monitoring as listed below: -Cardiac Monitoring: An order was placed for continuous cardiac monitoring. The monitor shows a rate of 70 with sinus rhythm. -ECG: Sinus rhythm rate of 77 Normal axis No PVCs QTc 436 -Laboratory studies:Interpreted by me as stated above in MDM and shown below. Imaging studies: Xrays: As interpreted by me: Portable AP upright 1 view of the chest shows no focal infiltrate CTs show: CT head was negative Procedures:none Critical Care: None Past Med/Surg History Problem List (Updated 08/12/24 @ 20:35 by Sang Padron DO) Hyperglycemia (Acute) Weakness (Acute) UZMA (acute kidney injury) (Acute) Orthostatic hypotension Acute kidney injury superimposed on chronic kidney disease Sjogren syndrome Chronic rhinitis Contact dermatitis Status post nasal septoplasty Obstruction of right lacrimal duct Eyelid abnormality Change in bowel habits Vitamin D deficiency Encounter for pre-operative examination Pre-diabetes Drug-induced encephalopathy Left shoulder pain (Acute) Confusion (Acute) Hiatal hernia (Chronic) Diabetes mellitus, type II Sleep apnea pt has inspire in place Gastroparesis History of cholecystectomy Hypertension (Chronic) GERD (gastroesophageal reflux disease) (Chronic) Asthma (Chronic) rare res inh use Restless legs syndrome (RLS) (Chronic) Depression (Chronic) Anxiety (Chronic) Hypothyroidism (Chronic) Chronic kidney disease (Chronic) Medical History Essential tremor PONV (postoperative nausea and vomiting) Hiatal hernia Surgical History History of surgery History of cataract surgery History of hysterectomy Hx of foot surgery History of carpal tunnel release History of esophagogastroduodenoscopy (EGD) History of colonoscopy History of nasal surgery Family History Mother Colon cancer Diabetes Glaucoma Father Prostate cancer Bladder cancer Grandmother (Maternal) Diabetes Heart disease Grandfather (Maternal) Cancer Other No family history of adverse response to anesthesia Denies family history of Ovarian cancer Myocardial infarction Social History Smoking Status: Never smoker Second Hand Exposure: Yes; Do You Dip or Chew Tobacco: No; Hx Alcohol Use: Yes ("rarely") Alcohol type: wine Hx Substance Use: No Preferred Language: Azeri Communication Ability: Effective Visual Impairment: No Limitations Hearing Ability: Normal Health Sciences Manager Required: No Beliefs That Will Affect Care: None marital status: Current Living Situation: Spouse current occupational status: retired How many Children do You have: 2 Feels Safe at Home: Yes Safety Concerns: Feels Safe At This Time Childhood Exposure to Second-Hand Smoke: Yes Diet: regular caffeine: Yes Dental Care, Regularly: No Physical Activity Frequency: Does not Exercise Seatbelt Use: always Sunscreen Use: No Assistive Devices: Apnea Monitor and Glasses Allergies Allergies Allergy/AdvReac Type Severity Reaction Status Date / Time house dust Allergy Mild Sneezing Verified 08/10/24 12:53 sulfamethoxazole AdvReac Intermediate Dizziness Verified 08/10/24 12:53 [From Bactrim] trimethoprim [From Bactrim] AdvReac Intermediate Dizziness Verified 08/10/24 12:53 Home Meds Home Medications Medication Instructions Recorded Confirmed albuterol sulfate 90 mcg/actuation 2 puff inhalation DIRECTED PRN 07/28/20 08/12/24 aerosol inhaler Shortness Of Breath Or Wheezing famotidine 20 mg tablet 20 mg PO BID 07/28/20 08/12/24 fluticasone furoate 200 1 inh inhalation QAM 07/28/20 08/12/24 mcg-vilanterol 25 mcg/dose inhalation powder (Breo Ellipta) pantoprazole 40 mg tablet,delayed 40 mg PO QAM 07/28/20 08/12/24 release ropinirole 0.5 mg tablet 0.5 mg PO HS 07/28/20 08/12/24 venlafaxine 150 mg 150 mg PO HS 07/28/20 08/12/24 capsule,extended release 24 hr cholecalciferol (vitamin D3) 50 50 mcg PO QAM 02/10/24 08/12/24 mcg (2,000 unit) capsule (Vitamin D3) clonazepam 0.5 mg tablet 0.25 mg PO . EVERY OTHER NIIGHT 08/12/24 08/12/24 rosuvastatin 5 mg tablet 5 mg PO QAM 08/12/24 08/12/24 trazodone 50 mg tablet 50 mg PO HS 08/12/24 08/12/24 Previous Rx's Medication Instructions Recorded acetaminophen 325 mg tablet 650 mg (2 x 325 mg) PO Q4H PRN 08/01/20 pain #50 tabs empagliflozin 10 mg tablet 10 mg PO QAM #30 tabs 04/20/24 (Jardiance) levothyroxine 137 mcg capsule 137 mcg PO QAM #90 caps 07/17/24 blood-glucose meter,continuous #1 ea 07/20/24 (Dexcom G6 Scraper Hand) blood-glucose sensor (Dexcom G6 #3 ea 07/20/24 Sensor device) blood-glucose transmitter (Dexcom #1 ea 07/20/24 G6 Transmitter device) sulfamethoxazole 800 1 tab PO BID 5 days #10 tabs 08/07/24 mg-trimethoprim 160 mg tablet (Bactrim DS) olmesartan 20 mg tablet 10 mg (1/2 x 20 mg) PO QAM #90 tabs 08/10/24 Results & Data (ED) Vital Signs Vital Signs - 24 hr 08/12/24 13:16 08/12/24 13:30 08/12/24 13:30 Temperature 36.8 C Temperature Source Skin Pulse Rate - Lying Pulse Rate - Sitting Pulse Rate - Standing Pulse Rate 90 Pulse Rate [Apical] 76 Pulse Rate from SpO2 Sensor Respiratory Rate 18 18 Respiratory Effort / Characteristics Non-Labored Spontaneous Respiratory Depth Normal Respiratory Pattern Regular Blood Pressure - Lying Blood Pressure - Sitting Blood Pressure- Standing Blood Pressure 89/48 L Blood Pressure [Right Arm] 114/60 Blood Pressure Mean 61 Blood Pressure Mean [Right Arm] 78 Pulse Oximetry 99 98 97 Oxygen Delivery Method Room Air Room Air Room Air Sepsis Recent Fever Within 48 Hours No Sepsis New/Unexplained Change in Mental Status No Sepsis Action Taken by Nursing No Action Required 08/12/24 13:37 08/12/24 13:39 08/12/24 13:42 Temperature Temperature Source Pulse Rate - Lying Pulse Rate - Sitting Pulse Rate - Standing Pulse Rate 76 75 78 Pulse Rate [Apical] Pulse Rate from SpO2 Sensor 76 77 Respiratory Rate 15 21 Respiratory Effort / Characteristics Respiratory Depth Respiratory Pattern Blood Pressure - Lying Blood Pressure - Sitting Blood Pressure- Standing Blood Pressure Blood Pressure [Right Arm] Blood Pressure Mean Blood Pressure Mean [Right Arm] Pulse Oximetry 97 97 Oxygen Delivery Method Sepsis Recent Fever Within 48 Hours Sepsis New/Unexplained Change in Mental Status Sepsis Action Taken by Nursing 08/12/24 13:45 08/12/24 13:53 08/12/24 14:00 Temperature Temperature Source Pulse Rate - Lying Pulse Rate - Sitting Pulse Rate - Standing Pulse Rate 75 78 Pulse Rate [Apical] Pulse Rate from SpO2 Sensor 78 Respiratory Rate 20 15 Respiratory Effort / Characteristics Respiratory Depth Respiratory Pattern Blood Pressure - Lying Blood Pressure - Sitting Blood Pressure- Standing Blood Pressure 98/49 L Blood Pressure [Right Arm] Blood Pressure Mean 61 Blood Pressure Mean [Right Arm] Pulse Oximetry 97 94 Oxygen Delivery Method Room Air Sepsis Recent Fever Within 48 Hours Sepsis New/Unexplained Change in Mental Status Sepsis Action Taken by Nursing 08/12/24 14:00 08/12/24 14:07 08/12/24 14:15 Temperature Temperature Source Pulse Rate - Lying Pulse Rate - Sitting Pulse Rate - Standing Pulse Rate 72 Pulse Rate [Apical] Pulse Rate from SpO2 Sensor 75 Respiratory Rate 18 Respiratory Effort / Characteristics Respiratory Depth Respiratory Pattern Blood Pressure - Lying Blood Pressure - Sitting Blood Pressure- Standing Blood Pressure 90/58 L 97/83 L Blood Pressure [Right Arm] Blood Pressure Mean 64 92 Blood Pressure Mean [Right Arm] Pulse Oximetry 94 Oxygen Delivery Method Sepsis Recent Fever Within 48 Hours Sepsis New/Unexplained Change in Mental Status Sepsis Action Taken by Nursing 08/12/24 14:17 08/12/24 14:30 08/12/24 14:30 Temperature Temperature Source Pulse Rate - Lying Pulse Rate - Sitting Pulse Rate - Standing Pulse Rate 75 Pulse Rate [Apical] Pulse Rate from SpO2 Sensor 82 Respiratory Rate 19 Respiratory Effort / Characteristics Respiratory Depth Respiratory Pattern Blood Pressure - Lying Blood Pressure - Sitting Blood Pressure- Standing Blood Pressure 100/71 105/63 Blood Pressure [Right Arm] Blood Pressure Mean 86 72 Blood Pressure Mean [Right Arm] Pulse Oximetry 92 Oxygen Delivery Method Sepsis Recent Fever Within 48 Hours Sepsis New/Unexplained Change in Mental Status Sepsis Action Taken by Nursing 08/12/24 14:48 08/12/24 14:59 08/12/24 15:00 Temperature Temperature Source Pulse Rate - Lying Pulse Rate - Sitting Pulse Rate - Standing Pulse Rate 74 Pulse Rate [Apical] Pulse Rate from SpO2 Sensor 74 Respiratory Rate 20 Respiratory Effort / Characteristics Respiratory Depth Respiratory Pattern Blood Pressure - Lying Blood Pressure - Sitting Blood Pressure- Standing Blood Pressure 124/67 119/60 Blood Pressure [Right Arm] Blood Pressure Mean 90 89 Blood Pressure Mean [Right Arm] Pulse Oximetry 93 Oxygen Delivery Method Sepsis Recent Fever Within 48 Hours Sepsis New/Unexplained Change in Mental Status Sepsis Action Taken by Nursing 08/12/24 15:02 08/12/24 15:05 08/12/24 15:06 Temperature Temperature Source Pulse Rate - Lying 75 Pulse Rate - Sitting 76 Pulse Rate - Standing 85 Pulse Rate 74 Pulse Rate [Apical] 76 Pulse Rate from SpO2 Sensor 74 Respiratory Rate 14 16 Respiratory Effort / Characteristics Non-Labored Spontaneous Respiratory Depth Normal Respiratory Pattern Blood Pressure - Lying 90/58 L Blood Pressure - Sitting 106/52 L Blood Pressure- Standing 85/52 L Blood Pressure Blood Pressure [Right Arm] 119/60 Blood Pressure Mean Blood Pressure Mean [Right Arm] 79 Pulse Oximetry 98 97 Oxygen Delivery Method Room Air Sepsis Recent Fever Within 48 Hours Sepsis New/Unexplained Change in Mental Status Sepsis Action Taken by Nursing 08/12/24 15:23 08/12/24 15:29 08/12/24 15:30 Temperature Temperature Source Pulse Rate - Lying Pulse Rate - Sitting Pulse Rate - Standing Pulse Rate 76 74 Pulse Rate [Apical] Pulse Rate from SpO2 Sensor 76 74 Respiratory Rate 14 14 Respiratory Effort / Characteristics Respiratory Depth Respiratory Pattern Blood Pressure - Lying Blood Pressure - Sitting Blood Pressure- Standing Blood Pressure 91/72 L Blood Pressure [Right Arm] Blood Pressure Mean 76 Blood Pressure Mean [Right Arm] Pulse Oximetry 97 98 Oxygen Delivery Method Sepsis Recent Fever Within 48 Hours Sepsis New/Unexplained Change in Mental Status Sepsis Action Taken by Nursing 08/12/24 15:35 08/12/24 15:41 08/12/24 15:50 Temperature Temperature Source Pulse Rate - Lying Pulse Rate - Sitting Pulse Rate - Standing Pulse Rate 81 73 79 Pulse Rate [Apical] Pulse Rate from SpO2 Sensor 81 77 79 Respiratory Rate 17 22 Respiratory Effort / Characteristics Respiratory Depth Respiratory Pattern Blood Pressure - Lying Blood Pressure - Sitting Blood Pressure- Standing Blood Pressure Blood Pressure [Right Arm] Blood Pressure Mean Blood Pressure Mean [Right Arm] Pulse Oximetry 97 98 Oxygen Delivery Method Sepsis Recent Fever Within 48 Hours Sepsis New/Unexplained Change in Mental Status Sepsis Action Taken by Nursing Laboratory Data 08/12/24 13:20 08/12/24 13:20 Lab Results 08/12/24 08/12/24 Range/Units 13:20 14:08 WBC 6.95 (4.8-10.8) K/ul RBC 4.59 (4.20-5.40) M/uL Hgb 13.3 (12.0-16.0) g/dl Hct 40.5 (37.0-47.0) % MCV 88.2 (80.0-100.0) fL MCH 29.0 (25.0-34.0) pg MCHC 32.8 (32.0-36.0) g/dL RDW Std Deviation 43.3 (36.4-46.3) fL RDW Coeff of Evan 13.3 (11.5-14.5) % Plt Count 290 (130-400) K/uL MPV 10.2 (9.4-12.4) fL Immature Gran % (Auto) 0.4 % Neut % (Auto) 69.7 % Lymph % (Auto) 20.0 % [place] % (Auto) 8.2 % Eos % (Auto) 1.4 % Baso % (Auto) 0.3 % Neut # (Auto) 4.84 (1.40-6.50) K/uL Lymph # (Auto) 1.39 (1.20-3.40) K/uL [place] # (Auto) 0.57 (0.11-0.59) K/uL Eos # (Auto) 0.10 (0.00-0.50) K/uL Baso # (Auto) 0.02 (0.00-0.20) K/uL Immature Gran # (Auto) 0.03 (0.01-0.20) K/uL Sodium 140 (136-145) mmol/L Potassium 4.5 (3.5-5.1) mmol/L Chloride 104 (98-107) mmol/L Carbon Dioxide 29 (21-32) mmol/L Anion Gap 7 (3-11) BUN 25 H (6-23) mg/dl Creatinine 2.29 H (0.6-1.2) mg/dl Est Cr Clr Drug Dosing 21.7 ml/min eGFR 22.99 BUN/Creatinine Ratio 10.9 (10-20) Glucose 109 H (70-99(Fasting)) mg/dl Calcium 9.8 (8.6-10.3) mg/dl Total Bilirubin 0.2 (0.2-1.0) mg/dl AST 22 (13-39) U/L ALT 24 (7-52) U/L Alkaline Phosphatase 105 H (34-104) U/L Troponin I High Sens 6.1 (0-14) pg/ml Total Protein 7.5 (6.0-8.3) gm/dl Albumin 4.2 (3.4-5.0) gm/dl Globulin 3.3 (2.5-4.0) gm/dl Albumin/Globulin Ratio 1.3 (0.9-2) Lipase 27 (11-82) U/L Urine Color Dark Yellow Urine Appearance Cloudy A (Clear) Urine pH 5.5 (4.5-7.5) Ur Specific [place] 1.028 (1.000-1.030) Urine Protein Trace H (Negative) Urine Glucose (UA) 3+ H (Negative) Urine Ketones Trace H (Negative) Urine Blood Negative (Negative) Urine Nitrite Negative (Negative) Urine Bilirubin Negative (Negative) Urine Urobilinogen Negative (Negative) Ur Leukocyte Esterase Negative (Negative) Urine WBC (Auto) 0-5 (0-5) /hpf Urine RBC (Auto) 0-2 (0-2) /hpf U Hyaline Cast (Auto) >20 H (0-2) /lpf U Epithel Cells (Auto) 0-2 (0-2) /hpf Urine Bacteria (Auto) None Seen (None Seen) Urine Mucus Present A (None Prsent) Administered Medications Sodium Chloride (Nss) 1,000 mls @ 100 mls/hr IV .Q10H SHERIN Stop: 08/13/24 02:29 Last Admin: 08/12/24 17:19 Dose: 100 mls/hr Documented By: JMH Miscellaneous (*Jardiance*Order Awaiting Action) 1 each N/A QS SHERIN Stop: 09/11/24 18:04 Last Admin: 08/12/24 18:33 Dose: Not Given Documented By: RLLisa Discontinued Medications Sodium Chloride (Nss) 1,000 mls @ 999 mls/hr IV .Q1H1M ONE Stop: 08/12/24 14:58 Last Infusion: 08/12/24 15:24 Dose: Infused Documented By: Admin: 08/12/24 14:26 Dose: 999 mls/hr Documented By: ARYAN Sodium Chloride (Nss) 1,000 mls @ 999 mls/hr IV .Q1H1M ONE Stop: 08/12/24 16:14 Last Infusion: 08/12/24 16:29 Dose: Infused Documented By: Admin: 08/12/24 15:24 Dose: 999 mls/hr Documented By: ARYAN Imaging Data Radiologist's Impression: Chest X-Ray 08/12/24 13:50 XR chest 1V portable HISTORY: 64 years-old Female Chest pain, nonspecific COMPARISON: 07/31/2020 TECHNIQUE: AP view of the chest FINDINGS: Heart size is normal. No pneumothorax, pleural effusion or airspace consolidation. Cholecystectomy clips are noted. Battery pack projects over the right chest with visualized leads appearing intact. IMPRESSION: No acute process. ACT 112: Negative or not required by law. The above report was generated using voice recognition software. It may contain grammatical, syntax or spelling errors. Electronically signed by: Philippe Mccall M.D. 08/12/2024 2:[address] 08/12/24 13:59 CT OF THE HEAD WITHOUT CONTRAST CLINICAL HISTORY: lightheaded COMPARISON STUDY: MRI of the brain August 01, 2006. Head CT July 31, 2020. CT DOSE: 703.85 mGy.cm TECHNIQUE: Helical axial images of the head were obtained without IV contrast. Automated exposure control was utilized for the study. A dose lowering technique was utilized adhering to the principles of ALARA. FINDINGS: No acute intracranial hemorrhage, midline shift or mass effect is present. White matter hypodense foci favor small vessel disease. The ventricular system is unremarkable. The basal cisterns are patent. No extra-axial collections are present. There are no findings to suggest acute dural sinus thrombosis or acute territorial infarct. No significant calvarial abnormalities are present. Visualized portions of the sinuses and mastoid air cells are clear. Incidental note is made of old bilateral nasal bone fractures. IMPRESSION: No acute intracranial findings. ACT 112: Negative or not required by law. Electronically signed by: Mono Santiago M.D. 08/12/2024 3:05 PM Discharge Plan Visit Data Chief Complaint: Dizziness Stated Complaint: DIZZY, LIGHT HEADED, LOW BLOOD PRESSURE, UTI ED Provider: Sang Padron Discharge Problem: UZMA (acute kidney injury), Weakness, Hyperglycemia Patient Disposition: Admitted As Inpatient Discharge Instructions Interventions: ED Discharge Assessment Last Done: 08/12/24 17:33
[2024-08-12 14:12] LABS: Basophils # (auto) 0.02 K/uL (0.00-0.20); Basophils % (auto) 0.3 %; Eosinophils % (auto) 1.4 %; Hematocrit (blood only) 40.5 % (37.0-47.0); Hemoglobin 13.3 g/dl (12.0-16.0); Immature Granulocytes # (auto) 0.03 K/uL (0.01-0.20); Immature Granulocytes % (auto) 0.4 %; Lymphocytes # (auto) 1.39 K/uL (1.20-3.40); Mean Corpuscular Hgb Conc 32.8 g/dL (32.0-36.0); Mean Corpuscular Volume 88.2 fL (80.0-100.0); Mean Platelet Volume 10.2 fL (9.4-12.4); Monocytes # (auto) 0.57 K/uL (0.11-0.59); Monocytes % (auto) 8.2 %; Neutrophils # (auto) 4.84 K/uL (1.40-6.50); Neutrophils % (auto) 69.7 %; Platelet Count 290 K/uL (130-400); RDW Coefficient of Variation 13.3 % (11.5-14.5); RDW Standard Deviation 43.3 fL (36.4-46.3); Red Blood Count 4.59 M/uL (4.20-5.40); White Blood Count 6.95 K/ul (4.8-10.8)
--- NOTE | 2024-08-12 14:23 | XRay Report ---
XR chest 1V portable HISTORY: 64 years-old Female Chest pain, nonspecific COMPARISON: 07/31/2020 TECHNIQUE: AP view of the chest FINDINGS: Heart size is normal. No pneumothorax, pleural effusion or airspace consolidation. Cholecystectomy cl ips are noted. Battery pack projects over the right chest with visualized leads appearing intact. IMPRESSION: No acute process. ACT 112: Negative or not required by law. The above report was generated using voice recognition software. It may contain grammatical, syntax o r spelling errors. Electronically signed by: Philippe Mccall M.D. 08/12/2024 2:22 PM
[2024-08-12 14:24] LABS: Albumin Globulin Ratio 1.3 (0.9-2); Albumin Level 4.2 gm/dl (3.4-5.0); BUN Creatinine Ratio 10.9 (10-20); Bilirubin,Total 0.2 mg/dl (0.2-1.0); Calcium 9.8 mg/dl (8.6-10.3); Creatinine Clr Calc Pharmacy 21.7 ml/min; Globulin 3.3 gm/dl (2.5-4.0); Potassium 4.5 mmol/L (3.5-5.1); Total Protein 7.5 gm/dl (6.0-8.3)
[2024-08-12 14:26] LABS: Appearance Urine Cloudy (Clear); Bacteria Urine Automated None Seen (None Seen); Bilirubin Urine Negative (Negative); Blood Urine Negative (Negative); Cast Urine Automated >20 /lpf (0-2); Color Urine Dark Yellow; Epithelial Cell Urine Auto 0-2 /hpf (0-2); Glucose Urine UA 3+ (Negative); Ketones Urine Trace (Negative); Leukocyte Esterase Urine Negative (Negative); Mucus Urine Present (None Prsent); Nitrite Urine Negative (Negative); Protein Urine Trace (Negative); RBC Urine Automated 0-2 /hpf (0-2); Specific Gravity Urine 1.028 (1.000-1.030); Urobilinogen Urine Negative (Negative); WBC Urine Automated 0-5 /hpf (0-5); pH Urine 5.5 (4.5-7.5)
[2024-08-12] MEDS: SODIUM CHLORIDE 0.9% 1,000 ML IV ONE ×2 (14:26→15:24)
[2024-08-12 14:30] LABS: Troponin I High Sensitivity 6.1 pg/ml (0-14)
--- NOTE | 2024-08-12 15:07 | CT Scan Report ---
CT OF THE HEAD WITHOUT CONTRAST CLINICAL HISTORY: lightheaded COMPARISON STUDY: MRI of the brain August 01, 2006. Head CT July 31, 2020. CT DOSE: 703.85 mGy.cm TECHNIQUE: Helical axial images of the head were obtained without IV contrast. Automated exposure con trol was utilized for the study. A dose lowering technique was utilized adhering to the principles o f ALARA. FINDINGS: No acute intracranial hemorrhage, midline shift or mass effect is present. White matter hyp odense foci favor small vessel disease. The ventricular system is unremarkable. The basal cisterns ar e patent. No extra-axial collections are present. There are no findings to suggest acute dural sinus thrombosis or acute territorial infarct. No significant calvarial abnormalities are present. Visualiz ed portions of the sinuses and mastoid air cells are clear. Incidental note is made of old bilateral nasal bone fractures. IMPRESSION: No acute intracranial findings. ACT 112: Negative or not required by law. Electronically signed by: Mono Santiago M.D. 08/12/2024 3:05 PM
--- NOTE | 2024-08-12 15:20 | Electrocardiogram Report ---
Test Reason : Blood Pressure : */* mmHG Vent. Rate : 77 BPM Atrial Rate : 77 BPM P-R Int : 132 ms QRS Dur : 82 ms QT Int : 386 ms P-R-T Axes : 78 75 63 degrees QTcB Int : 436 ms Normal sinus rhythm Left atrial enlargement Borderline ECG When compared with ECG of 26-Feb-2024 14:55, No significant change was found Confirmed by Petey White ([id number]) on 08/12/2024 3:20:28 PM Referred By: REFERRED SELF Confirmed By: Petye White
[2024-08-12] MEDS ORDERED: ALBUTEROL HFA 8 GM INHALER INH PRN (16:16)
--- NOTE | 2024-08-12 16:17 | History & Physical Report ---
Date of Service August 12, 2024 Assessment & Plan (1) Acute kidney injury superimposed on chronic kidney disease: Plan: In setting of recent course of bactrim for UTI - Suspect bactrim-induced UZMA of 2.29 with a baseline creatinine of 1.3 - Admit to med/surg - Vital signs per unit protocol - Diabetic diet ordered - S/p 2L of NSS in ED, continue mIVF w/ NSS at 100 ml/hr - Trend renal function w/ BMP in AM (2) Orthostatic hypotension: Plan: Acute, x1 week duration - Confirmed with orthostatic VS performed in ED with drop in BP from 106 to 85 systolic from sitting to standing - S/P 2L of crystalloid in ED - Repeat orthostatics in AM (3) Diabetes mellitus, type II: Plan: Chronic and NIDDM - Continue Jardiance - Diabetic diet ordered - No need for accuchecks or insulin - Last ha1c was 6.2% in April 2024 (4) Hypothyroidism: Plan: Chronic - Continue levothyroxine Plan Chronic medical problems: - GED - Continue pepcid and PPI - Restless leg syndrome - continue requip - Depression/anxiety - continue effexor, trazodone, and klonopin - HLD - continue crestor - Asthma - continue Breo and PRN albuterol inhaler Lovenox 40mg sq daily has been ordered to start 08/13 in AM. Repeat labs ordered including cbc, bmp, and mag/phos. Above plan of care has been d/w Dr. Cortez. Further orders as warranted by attending. History of Present Illness Chief Complaint: Dizziness Primary Care Provider: TEGAN Hennessy is a 64 yo F with a pmhx of Sjogren's, NIDDM, HTN, asthma, hypothyroidism, and major depression who presents to the ER c/o persistent dizziness. She reports that this has been going on for the past week. She was dx'd with a UTI after developing symptoms on 08/07 and started on a 5-day course of Bactrim. She notes that when she first started c/o dizziness, she had just started taking a new medication for her depression called Auvelity. This medication was discontinued as dizziness is a known side effect. She has continued to have ongoing dizziness that is primarily positional, but denies vertiginous symptoms. She was seen by her PCP on 08/10, noted that her BP had dropped and was told to start taking 1/2 of her BP medication (olmesartan) from 20mg to 10mg. Despite this, she has continued to have positional dizziness. She subsequently presented to the ER where she was noted to be orthostatic, with a 20 mmHg drop in BP from sitting to standing. Additionally, her creatinine was found to be 2.29, BUN 25, and she has a baseline creatinine of 1.3. She has been ordered 2L of NSS and has been referred to the hospital medicine service for admission. Allergies Allergy/AdvReac Type Severity Reaction Status Date / Time house dust Allergy Mild Sneezing Verified 08/10/24 12:53 sulfamethoxazole AdvReac Intermediate Dizziness Verified 08/10/24 12:53 [From Bactrim] trimethoprim [From Bactrim] AdvReac Intermediate Dizziness Verified 08/10/24 12:53 Home Medications Medication Instructions Recorded Confirmed Type albuterol sulfate 90 mcg/actuation 2 puff inhalation DIRECTED PRN 07/28/20 08/12/24 History aerosol inhaler Shortness Of Breath Or Wheezing famotidine 20 mg tablet 20 mg PO BID 07/28/20 08/12/24 History fluticasone furoate 200 1 inh inhalation QAM 07/28/20 08/12/24 History mcg-vilanterol 25 mcg/dose inhalation powder (Breo Ellipta) pantoprazole 40 mg tablet,delayed 40 mg PO QAM 07/28/20 08/12/24 History release ropinirole 0.5 mg tablet 0.5 mg PO HS 07/28/20 08/12/24 History venlafaxine 150 mg 150 mg PO HS 07/28/20 08/12/24 History capsule,extended release 24 hr acetaminophen 325 mg tablet 650 mg (2 x 325 mg) PO Q4H PRN 08/01/20 08/12/24 Rx pain #50 tabs cholecalciferol (vitamin D3) 50 50 mcg PO QAM 02/10/24 08/12/24 History mcg (2,000 unit) capsule (Vitamin D3) empagliflozin 10 mg tablet 10 mg PO QAM #30 tabs 04/20/24 08/12/24 Rx (Jardiance) levothyroxine 137 mcg capsule 137 mcg PO QAM #90 caps 07/17/24 08/12/24 Rx blood-glucose meter,continuous #1 ea 07/20/24 08/12/24 Rx (Dexcom G6 Scarifier Operator) blood-glucose sensor (Dexcom G6 #3 ea 07/20/24 08/12/24 Rx Sensor device) blood-glucose transmitter (Dexcom #1 ea 07/20/24 08/12/24 Rx G6 Transmitter device) sulfamethoxazole 800 1 tab PO BID 5 days #10 tabs 08/07/24 08/12/24 Rx mg-trimethoprim 160 mg tablet (Bactrim DS) olmesartan 20 mg tablet 10 mg (1/2 x 20 mg) PO QAM #90 tabs 08/10/24 08/12/24 Rx clonazepam 0.5 mg tablet 0.25 mg PO . EVERY OTHER NIIGHT 08/12/24 08/12/24 History rosuvastatin 5 mg tablet 5 mg PO QAM 08/12/24 08/12/24 History trazodone 50 mg tablet 50 mg PO HS 08/12/24 08/12/24 History Past Med/Surg History Problem List (Updated 08/12/24 @ 20:35 by Sang Padron DO) Hyperglycemia (Acute) Weakness (Acute) UZMA (acute kidney injury) (Acute) Orthostatic hypotension Acute kidney injury superimposed on chronic kidney disease Sjogren syndrome Chronic rhinitis Contact dermatitis Status post nasal septoplasty Obstruction of right lacrimal duct Eyelid abnormality Change in bowel habits Vitamin D deficiency Encounter for pre-operative examination Pre-diabetes Drug-induced encephalopathy Left shoulder pain (Acute) Confusion (Acute) Hiatal hernia (Chronic) Diabetes mellitus, type II Sleep apnea pt has inspire in place Gastroparesis History of cholecystectomy Hypertension (Chronic) GERD (gastroesophageal reflux disease) (Chronic) Asthma (Chronic) rare res inh use Restless legs syndrome (RLS) (Chronic) Depression (Chronic) Anxiety (Chronic) Hypothyroidism (Chronic) Chronic kidney disease (Chronic) Medical History Essential tremor PONV (postoperative nausea and vomiting) Hiatal hernia Surgical History History of surgery History of cataract surgery History of hysterectomy Hx of foot surgery History of carpal tunnel release History of esophagogastroduodenoscopy (EGD) History of colonoscopy History of nasal surgery Family History Mother Colon cancer Diabetes Glaucoma Father Prostate cancer Bladder cancer Grandmother (Maternal) Diabetes Heart disease Grandfather (Maternal) Cancer Other No family history of adverse response to anesthesia Denies family history of Ovarian cancer Myocardial infarction Social History Smoking Status: Never smoker Second Hand Exposure: Yes; Do You Dip or Chew Tobacco: No; Hx Alcohol Use: Yes ("rarely") Alcohol type: wine Hx Substance Use: No Preferred Language: Turkmen Communication Ability: Effective Visual Impairment: No Limitations Hearing Ability: Normal Travel Physical Therapist Required: No Beliefs That Will Affect Care: None marital status: Current Living Situation: Spouse current occupational status: retired How many Children do You have: 2 Feels Safe at Home: Yes Safety Concerns: Feels Safe At This Time Childhood Exposure to Second-Hand Smoke: Yes Diet: regular caffeine: Yes Dental Care, Regularly: No Physical Activity Frequency: Does not Exercise Seatbelt Use: always Sunscreen Use: No Assistive Devices: Apnea Monitor and Glasses Review of Systems 2 Review of Systems: All systems reviewed and are unremarkable except as noted in HPI and below. +dizziness Denies fever, chills, fatigue, headache, nasal congestion, sore throat, cough, chest pain, shortness of breath, palpitations, orthopnea, PND, abdominal pain, n/v/d, constipation, dysuria, hematuria, frequency, back pain, joint pain or swelling, easy bruising or bleeding, skin lesions or rashes. Physical Exam 2 Physical Exam: GENERAL: 64 yo well-nourished WF. NAD. EYES: EOMI. PERRLA. Anicteric. HENT: Moist mucous membranes. No scleral icterus. No cervical lymphadenopathy. LUNGS: Clear to auscultation bilaterally. No W/R/R. CARDIOVASCULAR: Regular rate and rhythm. No M/G/R. No JVD. ABDOMEN: Soft, non-tender and non-distended. Bowel sounds normoactive x 4 quad. EXTREMITIES: No edema. Non-tender. Peripheral pulses +2/4. NEUROLOGIC: A&O x3. No focal neurological deficits. CN II-XII grossly intact. PSYCHIATRIC: Cooperative. Appropriate mood and affect. SKIN: Warm, dry, intact. No rashes or lesions. Results & Data Results & Data Vital Signs (Past 12 Hours) Vital Signs Temp Pulse Pulse Resp BP BP Pulse Ox 08/12/24 15:06 76 16 119/60 97 08/12/24 15:02 74 14 98 08/12/24 15:00 119/60 08/12/24 14:59 74 20 93 08/12/24 14:48 124/67 08/12/24 14:30 105/63 08/12/24 14:30 75 19 92 08/12/24 14:17 100/71 08/12/24 14:15 72 18 94 08/12/24 14:07 97/83 L 08/12/24 14:00 90/58 L 08/12/24 14:00 78 15 94 08/12/24 13:53 75 20 97 08/12/24 13:45 98/49 L 08/12/24 13:42 78 21 97 08/12/24 13:39 75 15 97 08/12/24 13:37 76 08/12/24 13:30 76 18 114/60 97 08/12/24 13:30 98 08/12/24 13:16 36.8 C 90 18 89/48 L 99 O2 Del Method 08/12/24 15:06 Room Air 08/12/24 15:02 08/12/24 15:00 08/12/24 14:59 08/12/24 14:48 08/12/24 14:30 08/12/24 14:30 08/12/24 14:17 08/12/24 14:15 08/12/24 14:07 08/12/24 14:00 08/12/24 14:00 08/12/24 13:53 Room Air 08/12/24 13:45 08/12/24 13:42 08/12/24 13:39 08/12/24 13:37 08/12/24 13:30 Room Air 08/12/24 13:30 Room Air 08/12/24 13:16 Room Air Laboratory Results 08/12/24 13:20 08/12/24 13:20 Diagnostic Findings Chest X-Ray 08/12/24 13:50 XR chest 1V portable HISTORY: 64 years-old Female Chest pain, nonspecific COMPARISON: 07/31/2020 TECHNIQUE: AP view of the chest FINDINGS: Heart size is normal. No pneumothorax, pleural effusion or airspace consolidation. Cholecystectomy clips are noted. Battery pack projects over the right chest with visualized leads appearing intact. IMPRESSION: No acute process. ACT 112: Negative or not required by law. The above report was generated using voice recognition software. It may contain grammatical, syntax or spelling errors. Electronically signed by: Philippe Mccall M.D. 08/12/2024 2:[address] 08/12/24 13:59 CT OF THE HEAD WITHOUT CONTRAST CLINICAL HISTORY: lightheaded COMPARISON STUDY: MRI of the brain August 01, 2006. Head CT July 31, 2020. CT DOSE: 703.85 mGy.cm TECHNIQUE: Helical axial images of the head were obtained without IV contrast. Automated exposure control was utilized for the study. A dose lowering technique was utilized adhering to the principles of ALARA. FINDINGS: No acute intracranial hemorrhage, midline shift or mass effect is present. White matter hypodense foci favor small vessel disease. The ventricular system is unremarkable. The basal cisterns are patent. No extra-axial collections are present. There are no findings to suggest acute dural sinus thrombosis or acute territorial infarct. No significant calvarial abnormalities are present. Visualized portions of the sinuses and mastoid air cells are clear. Incidental note is made of old bilateral nasal bone fractures. IMPRESSION: No acute intracranial findings. ACT 112: Negative or not required by law. Electronically signed by: Mono Santiago M.D. 08/12/2024 3:05 PM Code Status & VTE Plan Code Status Conditional --> DNI, confirmed w/ patient VTE Prophylaxis Plan VTE Prophylaxis will be ordered: Yes Supervising Physician Co-Signing Physician Notes I personally saw and examined the patient. I independently reviewed the labs, EKG, imaging, problem list, medication list, past medical history and family history. I verified all oneill points and agree with Christie Driscoll PA-C with the following exceptions and/or additions: 64 year old female presents to the ER with 1 week of dizziness and recent diagnosis of UTI with left flank pain now completed Bactrim course. O/E HS RRR, no murmurs, Chest CTAB, Abdo SNT, no CVA tenderness A/P UZMA - possible diagnosis although may just be Bactrim mediated Cr increase which does not represent true loss of GFR. Agree with IV fluids overnight. Stopping Bactrim (finished course of UTI). Monitor with AM labs. Suspect prior pyelonephritis given left flank tenderness previously and at risk of UTI returning given short 5 day course of antibiotics but no indication to restart antibiotics currently Presyncope / orthostatic hypotension - suspect related to UTI. Possible also dehydration with Cr rise. IV fluids. Monitor for recurrence PG Care Time/CCT Total # of Minutes Spent Total Time Spent with Patient: Total time spent is greater than 50% in coordination of care (as documented) at patient's floor/unit and/or counseling patient: 77 minutes Coding Level of Care Code 36073 INT INP/OBS CARE 3/75MIN Diagnoses Acute kidney injury superimposed on chronic kidney disease N17.9; N18.9 Orthostatic hypotension I95.1 Diabetes mellitus, type II E11.9 Hypothyroidism E03.9
[2024-08-12] MEDS: SODIUM CHLORIDE 0.9% 1,000 ML IV SCH (17:19)
[2024-08-12] MEDS ORDERED: MAGNESIUM HYDROXIDE SUSP 30 ML UDC PO PRN (18:10)
[2024-08-12] MEDS ORDERED: ONDANSETRON INJ 2 MG/ML 2 ML VIAL IV PRN (18:10)
[2024-08-12 18:21] VITALS: RESP 16
[2024-08-12] MEDS: rOPINIRole HCL 0.25 MG TABLET PO SCH (20:08)
[2024-08-12] MEDS: traZODone HCL 50 MG TAB PO SCH (20:08)
[2024-08-12] MEDS: VENLAFAXINE HCL XR 150 MG CAPXR PO SCH (20:08)
[2024-08-12] MEDS: ALUMINUM/MAGNESIUM SUSP 30 ML UDC PO PRN (20:14)
--- OUTSIDE RECORDS SUMMARY | 2024-08-13 04:53 | External Medical Summary | Summary of Care ---
Author Name Unknown Organization [facility] Address [address] [place] [address] Phone [phone] Care Team Providers Care Wool Fleece Sorter Name Role Phone Bridgette Emmanuel MD Primary Care Provider + Reason for Visit * Reason Onset Date Comments Advice 06/22/2024 Re: [facility] Encounter Details Date Type Department Care Team (Late st Contact Info) Description 06/22/2024 Telephone Sleep Disorders Ctr [facility] [address] [place] [phone] Jenny Balderrama, [address] [place] [address] Advice (Re: Insp[facility]) Allergies Active Allergy Reactions Criticality Noted Date Comments Dust 08/28/2018 Nasal congestion, coughing documented as of this encounter (statuses as of 08/12/2024) Medications Medication Sig Dispensed Refills Start Date End Date Status Hydrocortisone 2.5 % ointmentIndication s:Eyelid dermatitis, allergic/contact, left Apply to rash on the left upper eyelid twice daily x 3-4 day as needed for flares 20 g 12/06/2017 Active valACYclovir (VALTREX) 1000 MG Tablet Take 2 Tabs by mouth every 12 hours. for cold sores 4 Tab 11 06/12/2018 Active fluticasone (FLONASE) 50 MCG/ACT nasal sprayIndications:P ost-nasal drip Administer 2 Sprays into each nostril daily. 16 mL 05/26/2020 Active Triamcinolone Acetonide 0.1 % External Cream (Aristocort)Indica tions:Dermatitis,F lexural eczema Apply topically to affected area 2 times a day. To rash. 30 g 1 11/07/2021 Active Meclizine HCl 25 MG Oral Tablet (Antivert)Indicati ons:BPV (benign positional vertigo), bilateral Take 1 Tablet by mouth 3 times a day as needed for Dizziness. 30 Tablet 11/14/2021 Active Promethazine HCl 25 MG Rectal Suppository (Phenergan)Indicat ions:Non-intractab le vomiting with nausea, unspecified vomiting type Administer into the rectum 1 Suppository every 8 hours as needed for Nausea. 10 Suppository 1 12/07/2021 Active Vitamin D 50 MCG (2000 UT) Oral Capsule Take by mouth 2,000 Units in the morning. 30 Capsule 11 04/06/2022 Active ProAir HFA 108 (90 Base) MCG/ACT Inhalation Aerosol SolutionIndication s:Mild persistent asthma without complication 2 puffs every 6 hours as needed for cough,shortness of breath or wheezing. 25.5 g 11/15/2022 Active Tums E-X 750 750 MG Oral Tablet Chewable (calcium CARBonate) Take 1 Tablet by mouth in the morning. Active Dextromethorphan-b uPROPion ER 45-105 MG Oral Tablet Extended Release Take 45-105 mg by mouth in the morning. Take 1 tab daily.. Active clonazePAM 1 MG Oral Tablet (KlonoPIN) Take 1.5 Tablets by mouth at bedtime. Active Venlafaxine HCl ER 150 MG Oral Capsule Extended Release 24 Hour (Effexor XR) Take 1 Capsule by mouth at bedtime. 30 Capsule 11 08/15/2023 Active Advair Diskus 250-50 MCG/ACT Inhalation Aerosol Powder Breath ActivatedIndicatio ns:Mild persistent asthma without complication INHALE 1 DOSE BY MOUTH TWICE DAILY 60 Each 5 09/24/2023 Active Levothyroxine Sodium 125 MCG Oral Tablet (Euthyrox)Indicati ons:Hypothyroidism due to acquired atrophy of thyroid TAKE 1 TABLET BY MOUTH ONCE DAILY IN THE MORNING (AT LEAST 30 MINUTES PRIOR TO BREAKFAST OR OTHER MEDICATIONS) 90 Tablet 11/01/2023 Active clonazePAM 0.5 MG Oral Tablet (KlonoPIN) Take 1 Tablet by mouth at bedtime as needed for Anxiety. 11/15/2023 Active Cholestyramine 4 GM Oral Packet (Questran) Take 1 Packet by mouth in the morning. Mixed with liquid. Administer other oral medications, including vitamins or mineral supplements, at least 1 hour before or 4 to 6 hours after cholestyramine. 30 Packet 2 11/20/2023 Active Pantoprazole Sodium 40 MG Oral Tablet Delayed Release (Protonix) Take 1 Tablet by mouth in the morning. 90 Tablet 1 03/27/2024 Active Empagliflozin 10 MG Oral Tablet (Jardiance) Take 1 Tablet by mouth in the morning. 04/14/2024 Active rOPINIRole HCl 0.5 MG Oral Tablet (Requip) TAKE 1 TABLET BY MOUTH AT BEDTIME 30 Tablet 04/20/2024 Active Famotidine 20 MG Oral Tablet (Pepcid)Indication s:Gastroesophageal reflux disease without esophagitis Take 1 tablet by mouth twice daily 180 Tablet 06/18/2024 Active documented as of this encounter (statuses as of 08/12/2024) Active Problems Problem Noted Date Diagnosed Date Eczema 11/30/2021 Fibromyalgia 11/30/2021 Seasonal affective disorder 11/17/2020 Memory changes 09/15/2020 Stage 3a chronic kidney disease 09/05/2020 Overview: Per CKD protocol Trochanteric bursitis of both hips 08/20/2019 Gastroesophageal reflux disease without esophagi tis 05/07/2019 GOKUL (obstructive sleep apnea) 03/10/2019 Nocturnal hypoxemia 03/10/2019 RLS (restless legs syndrome) 03/10/2019 Hypothyroidism due to acquired atrophy of thyroi d 10/26/2016 Asthma, mild persistent 04/25/2015 Sjogren's syndrome 12/16/2014 S/P bilateral breast reduction 02/11/2012 Titubation 12/04/2011 Essential and other specified forms of tremor STRAIN SHOULDER, RIGHT 07/14/2011 sensory neuropathy of L hand and R grt and 2nd toes possibly related to Sjogrens 05/10/2011 ADVANCE DIRECTIVE INFORMATION 10/11/2006 Overview: Information offered-given to patient Gastroparesis 09/11/2006 Family history of colon cancer 06/10/2006 Chronic fatigue syndrome 08/30/2003 Myalgia and myositis Irritable bowel syndrome H/O hysterectomy for benign disease Prediabetes documented as of this encounter (statuses as of 08/12/2024) Resolved Problems Problem Noted Date Diagnosed Date Resolved Date Closed trimalleolar fracture 03/22/2016 03/22/2017 MANNING (dyspnea on exertion) 12/16/2014 Overview: ICD-10 update of inactive term Kidney disease, chronic, sta ge III (GFR 30-59 ml/min) 12/21/2013 09/08/2020 Overview: Per CKD protocol #1 H. pylori infection 02/14/2011 07/05/20 17 Other atopic dermatitis 12/20/200904/27 Overview: ICD-10 update of inactive term Dermatophytosis of foot 12/20/200904/27 Postmenopausal atrophic vaginitis 11/15/2009 05/10/2011 Enthesopathy of hip 06/03/2007 02/01/20 09 HELICOBACTER PYLORI (H. 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 Overview: Peralta Adies Syndrome documented as of this encounter (statuses as of 08/12/2024) Immunizations Name Administration Dates Next Due COVID-19 mRNA, LNP-s, No Pre serve, 2-Dose Series (Deep-Secure) 07/24/2022,10/12/2021,01/12/2021,12/22 Covid-19, Mrna, Lnp-s, Pf, B ivalent, 30 Mcg, IM, 12 yrs and above (Pfizer) 07/24/2022 PPD 04/20/2013 Pneumococcal Conjugate Vacci ne, 20-valent ([id number]) 05/15/2022 Pneumococcal Polysaccharide PPV23 (Pneumovax) 01/18/2017,01/31/2009 Seasonal Influenza Vac., MDV , IM, 0.5 mL (Fluzone) 07/05/2015,07/24/2014,08/11/2012,09/03,08/01/2010,11/15/2009,08/13/2008 Seasonal Influenza, PF, 6 M & above, IM , (FluLaval or Fluzone) 10/10/2022,08/11/2020,07/03/2019 Seasonal Influenza, Quadriva lent Hd (Fluzone Hd) 10/16/2023,07/21/2021 Seasonal Influenza, Quadriva lent, No Preserve, IM 07/05/2017,07/13/2016 TD, Preservative Free 02/13/2019 TDAP (age 10 and older)(Boostrix) 07/28/2020 TDAP, Age 7 and older, IM (Adacel) 01/31/2009 Zoster Vaccine Recombinant (Shingrix) 03/14/2020 ,11/27/2019 documented as of this encounter Social History Tobacco Use Types Packs/Day Years Used Date Smoking Tobacco: Never Smokeless Tobacco: Never Comments:Second hand smoke a s child (mother was smoker) Alcohol Use Standard Drinks/Week Comments Not Currently 0 (1 standard drink = 0.6 oz pur e alcohol) rare PHQ-2 Answer Date Recorded PHQ Adult Total Score 12 03/05/2023 Hunger Vital Sign Answer Date Recorded Within the past 12 months, y ou worried that your food would run out before you got the money to buy more. Never true 03/05/20 23 Within the past 12 months, t he food you bought just didn't last and you didn't have money to get more. Never true 03/05/2023 Sex and Gender Information Value Date Recorded Sex Assigned at Female 07/03/2019 9:45 AM EDT Gender Identity Female 07/03/2019 9:45 AM EDT Sexual Orientation Straight 07/03/2019 9: 45 AM EDT Job Start Date Occupation Industry Not on file Not on file Not on file documented as of this encounter Miscellaneous Notes * Telephone Encounter - Kassidy Driscoll LPN - 08/12/2024 9:15 AM EDT Please reschedule this pt with the [facility] rep * Telephone Encounter - Peggy Starr OSA - 08/04/2024 1:13 PM EDT Patient just called in to cancel f/u appt due to illness. Stomach pain and very sick to stomach. She is not sure if it due to starting a new diabetes medication or not. She was was going to keep the appointment when I told her the [facility] rep would be there, but she was at the Grocery store pickinga few things up and she said by the time she returned home to get her device, she would never make i t to the clinic in time. Please reach out to reschedule appt with Rep. * Telephone Encounter - Kassidy Driscoll LPN - 08/04/2024 11:48 AM EDT Still unable to talk to the pt over the phn. Pt does however have a f/up appt today with the [facility] rep with * Telephone Encounter - Kassidy Driscoll LPN - 07/30/2024 1:45 PM EDT Left a message for the pt to return phn call to the office. * Telephone Encounter - Kassidy Driscoll LPN - 07/29/2024 2:45 PM EDT Pt returned call and asked nursing to call her back. However the pt did not answer when the office called her. * Telephone Encounter - Kassidy Driscoll LPN - 07/29/2024 2:12 PM EDT Left a message for the pt to return phn call to the office. * Telephone Encounter - Kenya Aguillon OSA - 07/15/2024 2:41 PM EDT Patient called Medicare and they told her that [facility] was not a participating provider for her to follow up regarding [facility]. She switched to [facility] and now that doctor over there is not familiar with [facility]. Patient not sure what to do as to who she can follow up with for insurance coverage and the [facility]. * Telephone Encounter - Kassidy Driscoll LPN - 06/22/2024 9:04 AM EDT Images from the original note were not included. Jenny Balderrama, [facility] Nurse Pool/Class Please check in on pt that: 1) Using [facility] nightly? If not, what is preventing them from doing so? 2) Taking steps up in program? What level is she on? 3) Feeling more rested during the day? Left a message for the pt to return phn call to the office. documented in this encounter Plan of Treatment Scheduled Procedures Name Priority Associated Diagnoses Date/Ti me COLONOSCOPY FLEXIBLE PROXIMA L DIAGNOSTIC Recall History of colon polyps Family history of colon cancer Health Maintenance Due Date Last Done Comments Cologuard 2003 Fecal Occult Blood Test 2003 Sigmoidoscopy 2003 DXA Scan 2023 Depression Monitoring 03/05/2024 03/05/2023 HbA1c 03/05/2024 03/05/2023, 0706/2022, 04/13/2021, Additional history exists Mammogram 03/20/2024 03/20/2023, 11/29, 12/20/2020, Additional history exists GFR 04/16/2024 10/16/2023, 05/30, 03/19/2023, Additional history exists TSH 05/30/2024 05/30/2023, 07/29, 04/03/2022, Additional history exists COVID-19 Vaccine ( season) 2024 07/24/2022, 07/24/2022, 10/12/2021, Additional history exists Influenza Vaccine (FLU shot) (#1) 2024 10/16/2023, 10/10/2022, 07/21/2021, Additional history exists Adult Wellness Visit 2024 CKD HGB USE SMARTSET 23624 10/16/202410/16, 10/16/2023, 03/19/2023, Additional history exists CKD PHOS USE SMARTSET 53747 10/16/202409/28, 05/15/2022, 05/03/2021, Additional history exists Albumin/Creatinine Ratio 10/18/2024 023, 04/03/2022, 05/03/2021, Additional history exists Colonoscopy 01/29/2025 01/29/2022, 04/0 01/2022, 05/24/2020, Additional history exists Colorectal Cancer Screening 01/29/2025 Lipid Panel 03/05/2028 03/05/2023, 04/27, 04/13/2021, Additional history exists DTap/Tdap Vaccines (4 - Td or Tdap) 07/28/2030 07/28/2020, 02/13/2019, 01/31/2009 Zoster Vaccines Completed 03/14/2020, 11/27/2019 RETIRED - COLONOSCOPY-EVERY 5 YRS AGES 18-100 Discontinued 01/29/2022, 01/29/2022, 05/24/2020, Additional history exists Pneumococcal Vaccine: 65+ Years Completed 05/15/2022, 01/18/2017, 01/31/2009 HPV (Gardasil) Vaccine Aged Out No lo nger eligible based on patient's age to complete this topic Hepatitis B Vaccine Aged Out No longe r eligible based on patient's age to complete this topic MENINGOCOCCAL (MENACTRA/MENVEO) Aged Out No longer eligible based on patient's age to complete this topic documented as of this encounter Medical Devices Implanted Type Area Vascular Ultrasound Technologist Device Identifier Shelf Expiration Date Model / Serial / Lot 3cm X 5.3mm X 10mm Mtf Costal Cartilage Implanted:Qty: 1 on 01/10/2021 by Jolie Vivar MD at [facility] N/A: Nose [employer]OSKELETAL [employer]ANSPLANT FND 10/24/2024 [id number] / [id number] / [id number] Implant Lead Stimulation - [id number] - [id number] Implanted:Qty: 1 on 11/29/2022 by Carlos Gordon DMD, MD at [facility] Right: Neck [employer] 10/03/2025 [id number] / [id number] / Implant Sensor Respiratory - [id number] - [id number] Implanted:Qty: 1 on 11/29/2022 by Carlos Gordon DMD, MD at [facility] Right: Chest [employer] 10/07/2025 [id number] / [id number] / Implant Pulse Generator - [id number] - [id number] Implanted:Qty: 1 on 11/29/2022 by Carlos Godron DMD, MD at [facility] Right: Chest [employer] 09/18/2025 [id number] / [id number] / documented as of this encounter Advance Directives * Full Code (Latest Code Status on File) Date Activated Date Inactivated Comments 05/10/2023 11:46 AM 05/10/2023 4:50 PM This order reflects the patients wishes and were consensually agreed upon. Question Answer Comments Discussion of Advance Directives occurred with: Patient * Full Code Date Activated Date Inactivated Comments 05/10/2023 9:04 AM 05/10/2023 11:46 AM This order reflects the patients wishes and were consensually agreed upon. Question Answer Comments Discussion of Advance Directives occurred with: Patient * Full Code Date Activated Date Inactivated Comments 05/10/2023 8:59 AM 05/10/2023 9:04 AM This order r eflects the patients wishes and were consensually agreed upon. Question Answer Comments Discussion of Advance Directives occurred with: Patient * Full Code Date Activated Date Inactivated Comments 11/29/2022 6:50 AM 11/29/2022 4:13 PM This order ref lects the patients wishes and were consensually agreed upon. Question Answer Comments Discussion of Advance Directives occurred with: Patient * Full Code Date Activated Date Inactivated Comments 10/19/2022 8:04 AM 10/19/2022 2:52 PM This order reflects the patients wishes and were consensually agreed upon. Question Answer Comments Discussion of Advance Directives occurred with: Patient Care Teams Wool Fleece Sorter Relationship Specialty Start Date End Date Bridgette Emmanuel MD [address] [place] [address] PCP - General Internal Medicine 09/26/22 documented as of this encounter
[2024-08-13] MEDS: LEVOTHYROXINE SODIUM 137 MCG TABLET PO SCH (06:30)
--- NOTE | 2024-08-13 06:59 | Hospitalist Progress Note ---
Date of Service August 13, 2024 Assessment & Plan (1) Acute kidney injury superimposed on chronic kidney disease: Plan: Likely due to use of Bactrim in patient with CKD3. Baseline CR is 1.27 Gaby seem to be improving with fluids Continue flushing kidneys with NS or oral fluid intake to resolve intrarenal UZMA Avoid future Bactrim use No systemic effect, fever, chills. No elevated serum WBC. Belly pain resolved with Tums so likely due to GERD. Had EGD and COLO last month which did not show signs of ulcer. Continue pantoprazole. May have increased irritation from Bactrim course. (2) Orthostatic hypotension: Plan: Likely due to dehydration and infection Olmesartan dose decrease from 20 mg to 10 mg on Saturday by PCP Olmesartan dose may need to be re-evaluated again given 8 kg weight loss since November 2023 Repeat orthostatic exam is benign Improving with fluids, consider additional supplemental fluids Consider holding empagloflozin. F/U pcp for medication management. Considered mitral regurgitation due to holosystolic, blowing murmur on left chest at second intercostal space. Stress echo in April does not show signs of this. (3) Diabetes mellitus, type II: Plan: Diabetic diet Consider discontinuing jardiance and starting metformin to reduce risk dehydration, UTI Follow up PCP/nephrology (4) Hypothyroidism: Plan: Controlled. Continue levothyroxine 137 mcg daily Plan Chronic medical problems: - GED - Continue pepcid and PPI - Restless leg syndrome - continue requip - Depression/anxiety - continue effexor, trazodone, and klonopin - HLD - continue crestor - Asthma - continue Breo and PRN albuterol inhaler Lovenox 40mg sq daily has been ordered to start 10 in AM. Repeat labs ordered including cbc, bmp, and mag/phos. Above plan of care has been d/w Dr. Cortez. Further orders as warranted by attending. Admission and Anticipated Discharge Date Admission Date: August 12, 2024 Nancie Griffin is a 64 yo female with a history of CKD3, T2DM, GERD, Hypothyroidism and anxiety who presented with 10 days of lightheadedness and was admitted for UZMA secondary to Bactrim for recent UTI. Gaby noticed she had back pain and increased urinary frequency. She reports her urine is more yellow than normal, and volume of voids is normal. She presented to urgent care and was diagnosed with UTI. She has had 1-2 UTI in the past. Gaby was found to have a UTI on 08/07. Culture showed ecoli. Patient treated with 5 days Bactrim. ED labs from 08/12 reveal UZMA. She is able to eat and drink, but in smaller quantities than baseline. Also reports drinking soda. Additionally, Gaby reported new onset lightheadedness starting 10+ days ago to her PCP who recommended she reduce her olmesartan from 20 mg to 10 mg on Saturday. She had also been taking Auvelity, which was stopped d/t side effect of dizziness. Reports that she passed out on Saturday. She was able to lower herself to the ground and denies hitting her head. Gaby continues to have low BP. She was found to have orthostatic hypotension in the ED and was given 2L Lactated Ringers. Additionally, she had been ordered NSS at 100ml/hr. Similar lightheadedness occurred in the february 2024. Patient was treated for dehydration at this time. Of note, she does take empagliflozin 10 mg daily, which can cause dehydration and increase risk of UTI. This was started 01/30/2024 Gaby also endorses belly pain that started around the same time as the lightheadedness. This pain is dull and comes and goes on its own resolving with Tums. She does have a history of GERD and takes pantoprazole 40 mg daily. Review of Systems Constitutional: Denies fever, chills Cardiovascular: Additional Comments: Denies SOB, chest pain Gastrointestinal: Endorses belly pain. EGD and colo 1 mo ago d/t hx GERD. Neurologic: Reports lightheadedness upon standing. Takes a few moments to get her bearings and then feels okay Physical Exam Constitutional: Well appearing, in no acute distress Neck: Supple. Trachea is midline. Respiratory: Clear to auscultation bilaterally. No wheezing, rales or rhonchi. Cardiovascular: Regular rate and rhythm. Blowing murmur best heard at L 2nd intercostal space. Capillary refill <2 sec. No lower extremity edema. Skin: +tenting. Warm, dry. No bruising or lesi ons. Psychiatric: Appropriate mood and affect Results & Data Results & Data Vital Signs (Past 12 Hours) Vital Signs Temp Pulse Resp BP Pulse Ox O2 Del Method 08/12/24 20:52 36.5 C 79 16 124/72 96 Room Air Laboratory Results BUN 25-->19 Creatinine 2.29-->1.53 GFR 22.99-->37.30 WBC 3.78 L RBC 4.02 L Hgb 11.3 L Hct 3.6 L Consider dilutional effect of fluid supplementation Urine shows no signs of infection. Diagnostic Findings CT head showed no abnormalities. CXR showed no infiltrates. Repeat orthostatics this morning Laying 121/62, 79 Sitting 113/64, 82 Standing 111/67, 93
[2024-08-13 07:29] LABS: Basophils # (auto) 0.02 K/uL (0.00-0.20); Basophils % (auto) 0.5 %; Eosinophils # (auto) 0.11 K/uL (0.00-0.50); Eosinophils % (auto) 2.9 %; Hemoglobin 11.3 g/dl (12.0-16.0); Immature Granulocytes # (auto) 0.01 K/uL (0.01-0.20); Immature Granulocytes % (auto) 0.3 %; Lymphocytes # (auto) 1.37 K/uL (1.20-3.40); Lymphocytes % (auto) 36.2 %; Mean Corpuscular Hemoglobin 28.1 pg (25.0-34.0); Mean Corpuscular Hgb Conc 31.4 g/dL (32.0-36.0); Mean Corpuscular Volume 89.6 fL (80.0-100.0); Mean Platelet Volume 9.9 fL (9.4-12.4); Monocytes # (auto) 0.37 K/uL (0.11-0.59); Monocytes % (auto) 9.8 %; Neutrophils % (auto) 50.3 %; Platelet Count 209 K/uL (130-400); RDW Coefficient of Variation 13.6 % (11.5-14.5); RDW Standard Deviation 44.4 fL (36.4-46.3); Red Blood Count 4.02 M/uL (4.20-5.40); White Blood Count 3.78 K/ul (4.8-10.8)
[2024-08-13 07:36] VITALS: BP 129/73; PULSE 78; TEMP 98.1; O2SAT 95
[2024-08-13 07:38] LABS: BUN Creatinine Ratio 12.4 (10-20); Calcium 8.1 mg/dl (8.6-10.3); Creatinine Clr Calc Pharmacy 32.5 ml/min; Magnesium 2.2 mg/dl (1.7-2.4); Phosphorus 3.4 mg/dl (2.5-4.9); Potassium 4.7 mmol/L (3.5-5.1)
[2024-08-13] MEDS: PANTOprazole 40 MG TAB PO SCH (08:14)
[2024-08-13] MEDS: ENOXAPARIN INJ 30 MG/0.3 ML SYR SQ SCH (08:14)
[2024-08-13] MEDS: ROSUVASTATIN CALCIUM 5 MG TAB PO SCH (08:14)
[2024-08-13] MEDS: FAMOTIDINE 20 MG TAB PO SCH (08:14)
[2024-08-13] MEDS: FLUTICASONE/VILANTEROL 200/25MCG 14 PUFFS/INHALER INH SCH (08:15)
[2024-08-13] MEDS: INFLUENZA VACC TS2024-25(65y+)/PF (IIV3) 0.5mL Syr IM ONE (08:55)
[2024-08-13] MEDS: ACETAMINOPHEN 325 MG TAB PO PRN (12:32)
--- NOTE | 2024-08-13 15:09 | Discharge Summary ---
Date of Service August 13, 2024 Admission HPI Per Admitting Provider Gaby is a 64 yo female with a history of CKD3, T2DM, GERD, Hypothyroidism and anxiety who presented with 10 days of lightheadedness and was admitted for UZMA secondary to Bactrim for recent UTI. Gaby noticed she had back pain and increased urinary frequency. She reports her urine is more yellow than normal, and volume of voids is normal. She presented to urgent care and was diagnosed with UTI. She has had 1-2 UTI in the past. Gaby was found to have a UTI on 08/07. Culture showed ecoli. Patient treated with 5 days Bactrim at a dose of 800-160mg despite having a hx of CrCl in the 20s and CKD3. ED labs from 08/12 reveal UZMA so patient was admitted for work-up. She is able to eat and drink, but in smaller quantities than baseline. Also reports drinking soda. Additionally, Gaby reported new onset lightheadedness starting 10+ days ago to her PCP who recommended she reduce her olmesartan from 20 mg to 10 mg on Saturday. Given her significant weight loss (8kg in 7 months), it is likely she needed this dose re-evaluated. She had also been taking Auvelity, which was stopped d/t side effect of dizziness. Reports that she passed out on Saturday. She was able to lower herself to the ground and denies hitting her head. Gaby continues to have low BP. She was found to have orthostatic hypotension in the ED and was given 2L Lactated Ringers. Additionally, she had been ordered NSS at 100ml/hr. Similar lightheadedness occurred in the february 2024. Patient was treated for dehydration at this time. Of note, she does take empagliflozin 10 mg daily, which can cause dehydration and increase risk of UTI. This was started 01/30/2024 Gaby also endorses belly pain that started around the same time as the lightheadedness. This pain is dull and comes and goes on its own resolving with Tums. She does have a history of GERD and takes pantoprazole 40 mg daily. Gaby is very anxious. States her anxiety is not well controlled especially after her brother's new dementia diagnosis. She sees a psychiatrist 1x/month. Principal Diagnosis Acute Kidney Injury Discharge Exam Constitutional: Well appearing, in no acute distress Neck: Supple. Trachea is midline. Respiratory: Clear to auscultation bilaterally. No wheezing, rales or rhonchi. Cardiovascular: Regular rate and rhythm. Blowing murmur best heard at L 2nd intercostal space. Capillary refill <2 sec. No lower extremity edema. Skin: +tenting. Warm, dry. No bruising or lesi ons. Psychiatric: Patient is anxious appearing, tearful. Discharge Data Allergies Allergy/AdvReac Type Severity Reaction Status Date / Time house dust Allergy Mild Sneezing Verified 08/10/24 12:53 sulfamethoxazole AdvReac Intermediate Dizziness Verified 08/10/24 12:53 [From Bactrim] trimethoprim [From Bactrim] AdvReac Intermediate Dizziness Verified 08/10/24 12:53 Consultations 08/12/24 15:20 ED Decision to Admit Stat Ordered Studies 08/12/24 13:59 CT head/brain wo con Stat Hospital Course (1) Acute kidney injury superimposed on chronic kidney disease: Likely due to use of Bactrim in patient with CKD3. Baseline CR is 1.27 No systemic effect, fever, chills. No elevated serum WBC. Gaby seems to be improving with fluids Continue flushing kidneys with oral fluid intake to resolve intrarenal UZMA Avoid future Bactrim use Belly pain resolved with Tums so likely due to GERD. Had EGD and COLO last month which did not show signs of ulcer. Continue pantoprazole. May have increased irritation from Bactrim course. (2) Orthostatic hypotension: Likely due to dehydration and infection Olmesartan dose decrease from 20 mg to 10 mg on Saturday by PCP Olmesartan dose may need to be re-evaluated again given 8 kg weight loss since November 2023 Repeat orthostatic exam is benign Improved with fluids, consider additional supplemental fluids Continue empagliflozin, but consider switch to metformin given hx UTI and dehydration. F/U pcp for medication management. (3) Diabetes mellitus, type II: Consider discontinuing jardiance and starting metformin to reduce risk dehydration, UTI Follow up PCP/nephrology-scheduled at beginning of August. (4) Hypothyroidism: Controlled. Continue levothyroxine 137 mcg daily Plan Plan Chronic medical problems: - GERD - Continue pepcid and PPI - Restless leg syndrome - continue requip - Depression/anxiety - continue effexor, trazodone, and klonopin. Continue following with psychiatrist monthly. Discussed relaxation techniques and the link between anxiety and blood pressure. - HLD - continue crestor - Asthma - continue Breo and PRN albuterol inhaler Total Time Total Time Spent Total Time Spent (In Minutes): As per attending physician attestation Discharge Plan Discharge Items Patient Disposition: Home - Self-Care Reason For Visit: UZMA, DIZZINESS Discharge Diagnosis: Acute Kidney Injury in setting of Chronic Kidney Disease Activity: Resume your previous activity Non-emergency contact: Primary Care Provider Call non-emergency contact if: your symptoms worsen Follow-up/Referrals: Morelia Be CRNP [Primary Care Provider] - Diet: Carb Consistent or DM2 Addtl Attending Provider Instructions: You were hospitalized for an acute kidney injury and dehydration in setting of urinary tract infection treated with Bactrim. You were treated with IV fluids. Your blood pressure returned to normal. Your kidney function and symptoms have improved. We recommend that you continue good hydration, primarily water, and avoiding large quantities of soda, coffee or caffeinated teas. We are also recommending reduction in your high blood pressure medication, Olmesartan, to 10mg daily. You may resume your other home medications as previously prescribed. Please follow up with your primary care physician in 7 days to review your medications and discuss this hospitalization. Pending Studies at Discharge: No Stand-Alone Forms: My [facility] [employer], Smoking Cessation Medications and DC Order Prescriptions: Continued Jardiance 10 mg tablet 10 mg PO QAM Qty: 30 3RF levothyroxine 137 mcg capsule 137 mcg PO QAM Qty: 90 3RF (DME) Dexcom G6 Wet End Tester Misc See Rx Instructions .Route Qty: 1 0RF Rx Instructions: As directed (DME) Dexcom G6 Sensor Device See Rx Instructions .Route Qty: 3 0RF Rx Instructions: As directed (DME) Dexcom G6 Transmitter Device See Rx Instructions .Route Qty: 1 0RF Rx Instructions: As directed olmesartan 20 mg tablet 10 mg PO QAM Qty: 90 3RF acetaminophen 325 mg Tablet 650 mg PO Q4H PRN (Reason: pain) Qty: 50 0RF venlafaxine 150 mg capsule,extended release 24hr 150 mg PO HS famotidine 20 mg tablet 20 mg PO BID pantoprazole 40 mg tablet,delayed release (DR/EC) 40 mg PO QAM ropinirole 0.5 mg tablet 0.5 mg PO HS albuterol sulfate 90 mcg/actuation HFA aerosol inhaler 2 puff INHALATION DIRECTED PRN (Reason: Shortness Of Breath Or Wheezing) fluticasone furoate-vilanterol [Breo Ellipta] 200-25 mcg/dose blister with device 1 inh INHALATION QAM trazodone 50 mg tablet 50 mg PO HS clonazepam 0.5 mg tablet 0.25 mg PO . EVERY OTHER NIIGHT Rx Instructions: take at night rosuvastatin 5 mg tablet 5 mg PO QAM Patient Comments: *pt states 02/10/24 she has not started med yet cholecalciferol (vitamin D3) [Vitamin D3] 50 mcg (2,000 unit) Capsule 50 mcg PO QAM No Action sulfamethoxazole-trimethoprim [Bactrim DS] 800-160 mg tablet 1 tab PO BID 5 Days Qty: 10 0RF Discharge Orders: Discharge Order (Routine); Ordered 08/13/24 Ordered By: nAais Dawson/Other Patient Handouts: Dehydration Admission Data Admit Date/Time: 08/12/24 15:53 Attending Provider: Rosemarie Gray Admit Provider: Sami Cortez Primary Care Provider: Morelia Be Other Providers: Sami Cortez Other Interventions: Discharge Summary Assessment (RN) Last Done: 08/13/24 15:29 Supervising Physician Co-Signing Physician Notes Attending Physician Supervision Note: I independently interviewed and examined the patient and verified the oneill history and physical, reviewed labs and image studies and agree with findings and care plan noted above. 64 year old female presents to the ER with 1 week of dizziness and recent diagnosis of UTI with left flank pain treated with Bactrim course. UZMA - Likely prerenal from recent infection and lowering BP from 15lb weight loss while on ARB. Bactrim addition could also have contributed. Creatinine improved with IV hydration. HTN - presyncopal symptoms likely from lower blood pressure d/t weight loss. Continue olmasartan at the lower dose of 10mgs daily(changed on saturday). Monitor BP readings at home and take to PCP/Nephro visits. DM - continue Jardiance. With recent weight loss - anticipate lower A1c results and may not need medication. Uncontrolled Anxiety - In process of weaning Clonazepam by psychiatry clinic. Discussed incorporating mindfulness based activities in conjunction with medications and therapy - To help with BP control. Resident Activity Tracking Resident Involvement: Resident Care Provided Care Provided: [facility]
[2024-08-13] MEDS ORDERED: clonazePAM 0.5 MG TAB PO SCH (21:00)
== END 2024-08-13 15:52 | disposition home or self-care (01) | DRG 684 ==
LOC: SUATTDRO → ED 13:05 → SUATTDRO 15:53 → INTOOBSV 15:53 → 3E 15:53